=== PATIENT | female | born 1955 | race Hispanic/Latino ===

== ENCOUNTER 2017-11-23 14:38 | Emergency (ER) | payer MEDICAID, OTHER ==
[~2017-11-23 14:38] MED LIST: ASPI-1197 PO; ENAL2.5T PO; METF500T6 PO; NITR0.4T50 SL; SIMV20TA6 PO
[2017-11-23 16:43] LABS: APPEARANCE,URINE CLEAR (CLEAR); BILIRUBIN,URINE NEGATIVE (NEGATIVE); COLOR,URINE YELLOW (YELLOW); GLUCOSE, URINE (UA) NEGATIVE (NEGATIVE); KETONES,URINE NEGATIVE (NEGATIVE); LEUKOCYTE ESTERASE ,URINE TRACE (NEGATIVE); NITRATE,URINE NEGATIVE (NEGATIVE); OCCULT BLOOD,URINE TRACE-INTACT (NEGATIVE); PH,URINE 5.5 (5.0-8.0); PROTEIN,URINE NEGATIVE (NEGATIVE); UROBILINOGEN,URINE 0.2 mg/dL (0.2-1.0)
[2017-11-23 16:44] LABS: BACTERIA,URINE Rare /HPF (None Seen); RBC,URINE 0-1 /HPF (0-1); WBC,URINE 0-1 /HPF (0-1)
== END 2017-11-23 17:07 | disposition home or self-care (01) ==
LOC: EDH 14:38
DX: M54.32 Sciatica, left side (principal); M25.562 Pain in left knee; M25.552 Pain in left hip; E11.9 Type 2 diabetes mellitus without complications; I10 Essential (primary) hypertension; I25.10 Atherosclerotic heart disease of native coronary artery without angina pectoris; Z88.0 Allergy status to penicillin
CPT/HCPCS: 72131; 81001

== ENCOUNTER 2018-03-28 17:58 | Emergency (ER) | payer SELFPAY ==
[2018-03-28 18:24] LABS: BASOPHILS % (AUTO) 0.5 % (0.0-5.0); EOSINOPHILS % (AUTO) 1.8 % (0.0-8.0); HEMATOCRIT 38.2 % (36-48); LYMPHOCYTES % (AUTO) 37.2 % (21.0-51.0); MEAN CORPUSCULAR HEMOGLOBIN 29.6 pg (27.0-33.0); MEAN CORPUSCULAR HGB CONC 34.4 g/dL (32.0-36.0); MONOCYTES % (AUTO) 5.9 % (3.0-13.0); NEUTROPHILS % (AUTO) 54.6 % (40.0-77.0); PLATELET COUNT (AUTO) 363 K/uL (130-400); RED BLOOD CELL COUNT(AUTO) 4.44 MIL/uL (4.00-5.50); RED CELL DISTRIBUTION WIDTH 14.9 % (11.0-15.5); WHITE BLOOD COUNT (AUTO) 10.4 K/uL (4.8-10.8)
[2018-03-28 18:25] LABS: APPEARANCE,URINE Clear (CLEAR); BILIRUBIN,URINE Negative (NEGATIVE); COLOR,URINE Yellow (YELLOW); GLUCOSE, URINE (UA) Negative (NEGATIVE); KETONES,URINE Negative (NEGATIVE); LEUKOCYTE ESTERASE ,URINE Negative (NEGATIVE); NITRATE,URINE Negative (NEGATIVE); OCCULT BLOOD,URINE Negative (NEGATIVE); PROTEIN,URINE Negative (NEGATIVE); UROBILINOGEN,URINE 0.2 mg/dL (0.2-1.0)
[2018-03-28 18:32] LABS: POTASSIUM 4.3 mmol/L (3.5-5.1)
[2018-03-28 18:36] LABS: ALBUMIN 3.6 g/dL (3.5-5.0); BILIRUBIN,TOTAL 0.2 mg/dL (0.2-1.0); TOTAL PROTEIN, SERUM 8.7 g/dL (6.0-8.3)
[2018-03-28] MEDS ORDERED: IOPAMIDOL-370 75 ML VIAL IV ONE (19:00)
[2018-03-28] MEDS ORDERED: SODIUM CHLORIDE 0.9% 1000ML 1,000 ML IV ONE (19:09)
[2018-03-28] MEDS ORDERED: ONDANSETRON HCL 4 MG/2 ML VIAL ONE (19:09)
[2018-03-28 19:10] LABS: CREATINE KINASE, TOTAL 80 U/L (21-232); LIPASE 198 U/L (114-286)
[2018-03-28] MEDS ORDERED: MORPHINE SULFATE 4 MG/1ML SYG ONE (19:10)
== END 2018-03-28 20:25 | disposition home or self-care (01) ==
LOC: EDH 17:58
DX: K42.9 Umbilical hernia without obstruction or gangrene (principal); E11.9 Type 2 diabetes mellitus without complications; I10 Essential (primary) hypertension; I25.10 Atherosclerotic heart disease of native coronary artery without angina pectoris; Z88.0 Allergy status to penicillin
CPT/HCPCS: 36415; 74177; 80053; 81003; 82550; 83690; 84484; 85025; 93005; 96374; 96375; 99285; J2270; J2405; J7030; Q9967

== ENCOUNTER → 2018-08-02 | Outpatient (CLI) | payer OTHER, MEDICARE ==
[~2018-08-02] MED LIST changes: +METF-444 PO; -METF500T6 PO
== END | disposition home or self-care (01) ==
LOC: SHCH 14:46
PROVIDERS: ATTEND Internal Medicine Cardiovascular Disease
DX: R01.1 Cardiac murmur, unspecified (principal)
CPT/HCPCS: 93306

== ENCOUNTER → 2018-08-05 | Outpatient (CLI) | payer OTHER, MEDICARE ==
[~2018-08-05] MED LIST changes: +REGADENOSON 0.4 MG/5 ML PF SYG IVP SCH
== END | disposition home or self-care (01) ==
LOC: SHCH 07:45
PROVIDERS: ATTEND Internal Medicine Cardiovascular Disease
DX: I10 Essential (primary) hypertension (principal); I25.10 Atherosclerotic heart disease of native coronary artery without angina pectoris
CPT/HCPCS: 78452; 93017; 96374; A9500 ×2; J2785

== ENCOUNTER 2019-03-14 18:30 | Emergency (ER) | payer MEDICARE, OTHER ==
[~2019-03-14 18:30] MED LIST changes: -REGADENOSON 0.4 MG/5 ML PF SYG IVP SCH
[2019-03-14 20:25] LABS: BASOPHILS % (AUTO) 0.4 % (0.0-5.0); EOSINOPHILS % (AUTO) 2.2 % (0.0-8.0); HEMATOCRIT 36.2 % (36-48); MEAN CORPUSCULAR HEMOGLOBIN 29.5 pg (27.0-33.0); MEAN CORPUSCULAR HGB CONC 33.6 g/dL (32.0-36.0); MEAN CORPUSCULAR VOLUME 87.6 fL (79-99); MONOCYTES % (AUTO) 6.8 % (3.0-13.0); NEUTROPHILS % (AUTO) 65.6 % (40.0-77.0); PLATELET COUNT (AUTO) 288 K/uL (130-400); RED BLOOD CELL COUNT(AUTO) 4.14 MIL/uL (4.00-5.50); RED CELL DISTRIBUTION WIDTH 14.1 % (11.0-15.5); WHITE BLOOD COUNT (AUTO) 9.4 K/uL (4.8-10.8)
[2019-03-14 20:40] LABS: CARBON DIOXIDE 23 mmol/L (21-32); CHLORIDE 108 mmol/L (101-111); GLOMERULAR FILTR. RATE CALC 59 mL/min (>60); GLUCOSE,RANDOM 112 mg/dL (70-105); POTASSIUM 4.4 mmol/L (3.5-5.1); SODIUM SERUM 140 mmol/L (136-145); UREA NITROGEN, BLOOD 19 mg/dL (7-18)
[2019-03-14 20:44] LABS: ALANINE AMINOTRANSFERASE 21 U/L (12-78); ALBUMIN 3.5 g/dL (3.5-5.0); ASPARTATE AMINOTRANSFERASE 18 U/L (10-37); BILIRUBIN,DIRECT < 0.1 mg/dL (0.0-0.3); BILIRUBIN,TOTAL 0.2 mg/dL (0.2-1.0); TOTAL PROTEIN, SERUM 8.2 g/dL (6.0-8.3)
== END 2019-03-14 21:21 | disposition home or self-care (01) ==
LOC: EDH 18:30
DX: M79.662 Pain in left lower leg (principal); M79.652 Pain in left thigh; M25.562 Pain in left knee; E11.9 Type 2 diabetes mellitus without complications; I10 Essential (primary) hypertension; I25.10 Atherosclerotic heart disease of native coronary artery without angina pectoris; Z88.0 Allergy status to penicillin
CPT/HCPCS: 36415; 80048; 80076; 85025; 93971

== ENCOUNTER 2019-04-07 12:51 | Emergency (ER) | payer OTHER ==
[2019-04-07] MEDS ORDERED: KETOROLAC TROMETHAMINE 30MG/ML ONE (13:57)
== END 2019-04-07 14:43 | disposition home or self-care (01) ==
LOC: EDH 12:51
DX: M23.8X2 Other internal derangements of left knee (principal); I25.10 Atherosclerotic heart disease of native coronary artery without angina pectoris; E11.9 Type 2 diabetes mellitus without complications; I10 Essential (primary) hypertension; Z88.0 Allergy status to penicillin
CPT/HCPCS: 29505; 73562; 96372; 99284; J1885

== ENCOUNTER 2019-07-22 05:30 | Day surgery (SDC) | payer OTHER ==
[2019-07-17 10:11] VITALS: BP 145/75
[2019-07-17 10:15] LABS: BASOPHILS % (AUTO) 0.4 % (0.0-5.0); EOSINOPHILS % (AUTO) 1.5 % (0.0-8.0); HEMATOCRIT 36.4 % (36-48); LYMPHOCYTES % (AUTO) 29.5 % (21.0-51.0); MEAN CORPUSCULAR HEMOGLOBIN 29.4 pg (27.0-33.0); MEAN CORPUSCULAR HGB CONC 33.8 g/dL (32.0-36.0); MEAN CORPUSCULAR VOLUME 86.9 fL (79-99); MONOCYTES % (AUTO) 6.4 % (3.0-13.0); NEUTROPHILS % (AUTO) 62.2 % (40.0-77.0); PLATELET COUNT (AUTO) 303 K/uL (130-400); RED BLOOD CELL COUNT(AUTO) 4.19 MIL/uL (4.00-5.50); RED CELL DISTRIBUTION WIDTH 14.5 % (11.0-15.5)
[2019-07-17 10:18] LABS: APPEARANCE,URINE Clear (CLEAR); BILIRUBIN,URINE Negative (NEGATIVE); COLOR,URINE Yellow (YELLOW); GLUCOSE, URINE (UA) Negative (NEGATIVE); KETONES,URINE Negative (NEGATIVE); LEUKOCYTE ESTERASE ,URINE Small (NEGATIVE); NITRATE,URINE Negative (NEGATIVE); OCCULT BLOOD,URINE Negative (NEGATIVE); PROTEIN,URINE Negative (NEGATIVE); UROBILINOGEN,URINE 0.2 mg/dL (0.2-1.0)
[2019-07-17 10:28] LABS: POTASSIUM 4.8 mmol/L (3.5-5.1)
[2019-07-17 10:30] LABS: BACTERIA,URINE Rare /HPF (None Seen); RBC,URINE 0-1 /HPF (0-1); WBC,URINE 0-1 /HPF (0-1)
[2019-07-17 10:32] LABS: INR 0.94 (0.85-1.15); PARTIAL THROMBOPLASTIN TIME 24.6 SEC (26.3-35.5); PROTHROMBIN TIME 9.9 SEC (9.6-11.6)
[~2019-07-22] VITALS: Ht 147.3 cm; Wt 67.1 kg
[2019-07-22] VITALS (11 sets, daily range): BP systolic 94–171; BP diastolic 41–80
[~2019-07-22 05:30] MED LIST changes: +ALBU8.5H8 IH; +AMLO5TAB9 PO; +BENZ-51 PO; +CETI10TA57 PO; +CYCL10TA7 PO; -ENAL2.5T PO; +ERGO50CA PO; +ISOS30TA6 PO; +LINA5TAB PO; -METF-444 PO; +METO-408 PO; +RANI150T7 PO; +ROSU10TA28 PO; +SERT25TA5 PO; -SIMV20TA6 PO
[2019-07-22] MEDS ORDERED: SODIUM CHLORIDE 0.9% 1000ML 1,000 ML IV ONE (06:17)
[2019-07-22] MEDS ORDERED: SODIUM BICARB 50MEQ 50ML VIAL ONE (07:25)
[2019-07-22] MEDS ORDERED: NITROGLYCERIN 5 MG/ML 10 ML VIAL IV ONE (07:26)
[2019-07-22] MEDS ORDERED: IOHEXOL 350 MG/ML 100ML INFUS..BTL IV ONE (07:26)
[2019-07-22] MEDS ORDERED: IOHEXOL-350 50ML VIAL IV ONE (07:26)
[2019-07-22] MEDS ORDERED: LIDOCAINE HCL 2% 20ML ONE (07:26)
[2019-07-22] MEDS ORDERED: MEPERIDINE-PF 25 MG/ML SYG ONE (07:35)
[2019-07-22] MEDS ORDERED: MIDAZOLAM HCL 1 MG/ML 2ML VIAL ONE (07:35)
[2019-07-22] MEDS ORDERED: SODIUM CHLORIDE 0.9% 1000ML 1,000 ML IV SCH (08:34)
[2019-07-22] MEDS ORDERED: GLUCAGON 1MG KIT 1 MG ML IM PRN (08:45)
[2019-07-22] MEDS ORDERED: DEXTROSE 50%-WATER 50 ML DISP.SYRIN IV PRN (08:45)
[2019-07-22] MEDS ORDERED: PANTOPRAZOLE SODIUM 40 MG TABLET.DR PO SCH (09:15)
[2019-07-22] MEDS ORDERED: ACETAMINOPHEN-CODEINE 300/30MG TAB PO SCH (09:15)
[2019-07-22] MEDS ORDERED: ONDANSETRON HCL 4 MG/2 ML VIAL ONE (11:04)
[2019-07-22] MEDS ORDERED: INSULIN HUMULIN R 100 UNIT/ML 3ML SQ SCH (11:30)
== END 2019-07-22 13:15 | disposition home or self-care (01) ==
LOC: DAH 05:30
PROVIDERS: ATTEND Internal Medicine Cardiovascular Disease
DX: I25.118 Atherosclerotic heart disease of native coronary artery with other forms of angina pectoris (principal); R94.39 Abnormal result of other cardiovascular function study; I12.9 Hypertensive chronic kidney disease with stage 1 through stage 4 chronic kidney disease, or unspecified chronic kidney disease; E11.22 Type 2 diabetes mellitus with diabetic chronic kidney disease; N18.9 Chronic kidney disease, unspecified; E78.00 Pure hypercholesterolemia, unspecified; Z88.0 Allergy status to penicillin; Z79.82 Long term (current) use of aspirin; Z79.899 Other long term (current) drug therapy; E11.9 Type 2 diabetes mellitus without complications; Z90.5 Acquired absence of kidney; Z98.890 Other specified postprocedural states; Z82.49 Family history of ischemic heart disease and other diseases of the circulatory system
CPT/HCPCS: 36415; 71045; 80048; 81001; 82948 ×3; 85025; 85610; 85730; 93005; 93458; A4215; A4216; A4221; A4222; A4223 ×3; A4606; C1760; C1894; J1644; J2175; J2250; J2405; J3490 ×3; J7030; Q9965; Q9967 ×2; 99156; 99157

== ENCOUNTER 2020-01-07 22:12 | Emergency (ER) | payer OTHER ==
[2020-01-07] MEDS ORDERED: DEXAMETHASONE SOD PHOSPHATE 10MG/ML 1ML VIAL ONE (23:18)
[2020-01-07] MEDS ORDERED: KETOROLAC TROMETHAMINE 30MG/ML ONE (23:19)
[2020-01-07] MEDS ORDERED: IPRATROPIUM/ALBUTEROL SULFATE 3 ML SOLUTION IH ONE (23:30)
== END 2020-01-08 00:59 | disposition home or self-care (01) ==
LOC: EDH 22:12
DX: J20.9 Acute bronchitis, unspecified (principal); I25.10 Atherosclerotic heart disease of native coronary artery without angina pectoris; E11.9 Type 2 diabetes mellitus without complications; I10 Essential (primary) hypertension; Z88.0 Allergy status to penicillin
CPT/HCPCS: 71046; 87804 ×2; 94640; 96372 ×2; 99284; J1100; J1885

== ENCOUNTER 2021-03-07 20:27 | Emergency (ER) | payer OTHER, MEDICARE ==
[~2021-03-07 20:27] MED LIST changes: +AMLO-257 PO; -AMLO5TAB9 PO; -BENZ-51 PO; +BENZ-70 PO; -ISOS30TA6 PO; +ISOS30TA92 PO; +SERT-438 PO; -SERT25TA5 PO
[2021-03-07] MEDS ORDERED: ONDANSETRON HCL 4 MG/2 ML VIAL ONE ×2 (21:51→23:48)
[2021-03-07] MEDS ORDERED: PANTOPRAZOLE 40 MG/VIAL ONE (21:52)
[2021-03-07] MEDS ORDERED: FAMOTIDINE/PF 20 MG/2 ML VIAL IV ONE (21:52)
[2021-03-07] MEDS ORDERED: SODIUM CHLORIDE 0.9% 100 ML IV ONE (21:53)
[2021-03-07 22:05] LABS: BASOPHILS % (AUTO) 0.4 % (0.0-5.0); EOSINOPHILS % (AUTO) 3.6 % (0.0-8.0); HEMATOCRIT 38.4 % (36-48); LYMPHOCYTES % (AUTO) 35.2 % (21.0-51.0); MEAN CORPUSCULAR HEMOGLOBIN 28.8 pg (27.0-33.0); MEAN CORPUSCULAR HGB CONC 32.3 g/dL (32.0-36.0); MEAN CORPUSCULAR VOLUME 89.1 fL (79-99); MONOCYTES % (AUTO) 6.9 % (3.0-13.0); NEUTROPHILS % (AUTO) 53.2 % (40.0-77.0); PLATELET COUNT (AUTO) 292 K/uL (130-400); RED BLOOD CELL COUNT(AUTO) 4.31 MIL/uL (4.00-5.50); WHITE BLOOD COUNT (AUTO) 10.7 K/uL (4.8-10.8)
[2021-03-07 22:15] LABS: APPEARANCE,URINE Clear (CLEAR); BILIRUBIN,URINE Negative (NEGATIVE); COLOR,URINE Yellow (YELLOW); GLUCOSE, URINE (UA) Negative (NEGATIVE); KETONES,URINE Negative (NEGATIVE); LEUKOCYTE ESTERASE ,URINE Moderate (NEGATIVE); NITRATE,URINE Negative (NEGATIVE); OCCULT BLOOD,URINE Negative (NEGATIVE); PROTEIN,URINE Negative (NEGATIVE)
[2021-03-07 22:17] LABS: CREATININE 0.9 mg/dL (0.5-1.5); INR 0.94 (0.85-1.15); POTASSIUM 4.4 mmol/L (3.5-5.1); PROTHROMBIN TIME 10.3 SEC (9.6-11.6)
[2021-03-07 22:19] LABS: PARTIAL THROMBOPLASTIN TIME 23.4 SEC (26.3-35.5)
[2021-03-07 22:21] LABS: ALBUMIN 3.4 g/dL (3.5-5.0); BILIRUBIN,TOTAL 0.1 mg/dL (0.2-1.0); TOTAL PROTEIN, SERUM 7.7 g/dL (6.0-8.3)
[2021-03-07 22:42] LABS: RBC,URINE None Seen /HPF (0-1)
[2021-03-07 22:43] LABS: BACTERIA,URINE Few /HPF (None Seen); SQUAMOUS EPITHELIAL CELL,UR Moderate /HPF (0-2)
[2021-03-07] MEDS ORDERED: CEPHALEXIN 500 MG CAPSULE ONE (23:42)
[2021-03-07] MEDS ORDERED: MAG HYDROX/AL HYDROX/SIMETH ES 30 ML SUSP UDCUP ONE (23:42)
[2021-03-07] MEDS ORDERED: LIDOCAINE HCL 2% VISCOUS 15 ML UDCUP ONE (23:42)
== END 2021-03-08 00:19 | disposition home or self-care (01) ==
LOC: EDH 20:27
DX: K29.00 Acute gastritis without bleeding (principal); N39.0 Urinary tract infection, site not specified; E86.0 Dehydration; E11.9 Type 2 diabetes mellitus without complications; I10 Essential (primary) hypertension; I25.10 Atherosclerotic heart disease of native coronary artery without angina pectoris; Z88.0 Allergy status to penicillin; Z90.49 Acquired absence of other specified parts of digestive tract
CPT/HCPCS: 36415; 71045; 76705; 80053; 81001; 83690; 84484; 85025; 85610; 85730; 87088; 93005; 96374; 96375; 96376; 99285; C9113; J2405 ×2; J3490

== ENCOUNTER 2021-03-23 17:15 | Emergency (ER) | payer OTHER, MEDICARE ==
[2021-03-23] MEDS ORDERED: ACETAMINOPHEN-CODEINE 300/30MG TAB ONE (19:44)
[2021-03-23] MEDS ORDERED: KETOROLAC TROMETHAMINE 30MG/ML ONE (19:44)
== END 2021-03-23 20:13 | disposition home or self-care (01) ==
LOC: EDH 17:15
DX: S80.02XA Contusion of left knee, initial encounter (principal); I10 Essential (primary) hypertension; E11.9 Type 2 diabetes mellitus without complications; I25.10 Atherosclerotic heart disease of native coronary artery without angina pectoris; Z88.0 Allergy status to penicillin; W18.39XA Other fall on same level, initial encounter; Y93.89 Activity, other specified; Y92.89 Other specified places as the place of occurrence of the external cause; Y99.8 Other external cause status
CPT/HCPCS: 73562; 96372; 99283; J1885

== ENCOUNTER 2021-07-22 10:12 | Observation (INO) | payer OTHER, MEDICARE ==
[~2021-07-22] VITALS: Ht 177.8 cm; Wt 68.9 kg
[~2021-07-22 10:12] MED LIST changes: +CYCL-309 PO; -CYCL10TA7 PO
[2021-07-22 10:36] LABS: BASOPHILS % (AUTO) 0.4 % (0.0-5.0); EOSINOPHILS % (AUTO) 1.6 % (0.0-8.0); HEMATOCRIT 38.2 % (36-48); LYMPHOCYTES % (AUTO) 34.4 % (21.0-51.0); MEAN CORPUSCULAR HEMOGLOBIN 28.5 pg (27.0-33.0); MEAN CORPUSCULAR VOLUME 86.4 fL (79-99); MONOCYTES % (AUTO) 5.3 % (3.0-13.0); NEUTROPHILS % (AUTO) 57.6 % (40.0-77.0); PLATELET COUNT (AUTO) 333 K/uL (130-400); RED BLOOD CELL COUNT(AUTO) 4.42 MIL/uL (4.00-5.50); RED CELL DISTRIBUTION WIDTH 14.2 % (11.0-15.5); WHITE BLOOD COUNT (AUTO) 8.1 K/uL (4.8-10.8)
[2021-07-22 10:43] LABS: POTASSIUM 3.8 mmol/L (3.5-5.1)
[2021-07-22 10:45] LABS: INR 0.95 (0.85-1.15); PROTHROMBIN TIME 10.4 SEC (9.6-11.6)
[2021-07-22 10:46] LABS: PARTIAL THROMBOPLASTIN TIME 23.4 SEC (26.3-35.5)
[2021-07-22 10:48] LABS: ALBUMIN 3.3 g/dL (3.5-5.0); BILIRUBIN,TOTAL 0.2 mg/dL (0.2-1.0); TOTAL PROTEIN, SERUM 7.6 g/dL (6.0-8.3)
[2021-07-22 10:55] LABS: B-TYPE NATRIURETIC PEPTIDE 8 pg/mL (0-100)
[2021-07-22 11:58] VITALS: BP 163/71
[2021-07-22] MEDS ORDERED: ASPIRIN 325MG TAB PO SCH (12:00)
[2021-07-22] MEDS ORDERED: NITROGLYCERIN 1GM OINT 1 INCH/1GM TD SCH (12:00)
[2021-07-22] MEDS ORDERED: ERGO50CA PO (12:27)
[2021-07-22] MEDS ORDERED: DICY20TA3 PO (12:27)
[2021-07-22] MEDS ORDERED: IBUP-2070 PO (12:27)
[2021-07-22] MEDS ORDERED: ATOR10TA69 PO (12:27)
[2021-07-22] MEDS ORDERED: CYCL-309 PO (12:27)
[2021-07-22] MEDS ORDERED: NITROGLYCERIN 0.4 MG SL TAB SL ONE (13:57)
[2021-07-22 14:00] VITALS: BP 158/81
[2021-07-22] MEDS ORDERED: ENOXAPARIN SODIUM 80 MG/0.8 ML SQ SCH (14:00)
[2021-07-22] MEDS ORDERED: MORPHINE 2 MG SYG ONE (14:04)
[2021-07-22] MEDS ORDERED: ENOXAPARIN SODIUM 80 MG/0.8 ML SQ ONE (14:04)
[2021-07-22] MEDS ORDERED: MORPHINE 2 MG SYG IVP PRN (14:30)
[2021-07-22] MEDS ORDERED: LACTULOSE 20 GM/30 ML UDCUP PO PRN (14:30)
[2021-07-22] MEDS ORDERED: MAG/ALUM/SIMETH 30 ML UDCUP PO SCH (14:30)
[2021-07-22] MEDS ORDERED: NITROGLYCERIN 0.4 MG SL TAB SL PRN (14:30)
[2021-07-22] MEDS: NITROGLYCERIN 1GM OINT 1 INCH/1GM TD SCH ×2 (14:30→23:02)
[2021-07-22] MEDS ORDERED: PANTOPRAZOLE 40 MG/VIAL IVP SCH (14:30)
[2021-07-22] MEDS ORDERED: MORPHINE 2 MG SYG IVP SCH (14:30)
[2021-07-22] MEDS ORDERED: ACETAMINOPHEN 650 MG SUPPOSITORY RC PRN ×2 (14:30)
[2021-07-22] MEDS ORDERED: CLONIDINE HCL 0.1 MG TABLET PO PRN (14:30)
[2021-07-22] MEDS ORDERED: HYDRALAZINE 20MG/ML VIAL IV PRN (14:30)
[2021-07-22 14:45] LABS: AMYLASE 69 U/L (25-115); LIPASE 174 U/L (114-286)
[2021-07-22 15:27] LABS: APPEARANCE,URINE Clear (CLEAR); BILIRUBIN,URINE Negative (NEGATIVE); COLOR,URINE Yellow (YELLOW); GLUCOSE, URINE (UA) 250 mg/dL (NEGATIVE); KETONES,URINE Negative (NEGATIVE); LEUKOCYTE ESTERASE ,URINE Large (NEGATIVE); NITRATE,URINE Negative (NEGATIVE); OCCULT BLOOD,URINE Negative (NEGATIVE); PH,URINE 5.5 (5.0-8.0); PROTEIN,URINE Negative (NEGATIVE); UROBILINOGEN,URINE 0.2 mg/dL (0.2-1.0)
[2021-07-22 15:40] LABS: BACTERIA,URINE Moderate /HPF (None Seen); RBC,URINE 0-1 /HPF (0-1); WBC,URINE 26-50 /HPF (0-1)
[2021-07-22] MEDS ORDERED: POTASSIUM CHLORIDE 20MEQ/100ML 100 ML IV PRN (18:00)
[2021-07-22] MEDS ORDERED: KCL 20 MEQ ERTAB PO PRN (18:00)
[2021-07-22] MEDS ORDERED: DEXTROSE 50%-WATER 50 ML DISP.SYRIN IV PRN (18:00)
[2021-07-22] MEDS ORDERED: POTASSIUM CHLORIDE 10% ELIXIR 20 MEQ/15 ML UDCUP PO PRN (18:00)
[2021-07-22] MEDS ORDERED: GLUCAGON 1MG KIT 1 MG ML IM PRN (18:00)
[2021-07-22] MEDS ORDERED: LEVOFLOXACIN 500 MG/D5W 100 ML 100 ML IV SCH (18:00)
[2021-07-22] MEDS ORDERED: LIDOCAINE HCL-MPF 1% 2ML VIAL IV PRN (18:00)
[2021-07-22] MEDS: ONDANSETRON 4MG INJ IVP PRN (18:07)
[2021-07-22 18:23] VITALS: BP 151/72
[2021-07-22] MEDS ORDERED: ACETAMINOPHEN 325 MG TAB ONE (18:51)
[2021-07-22 19:30] VITALS: BP 151/72
[2021-07-22 21:00] VITALS: BP 134/76
[2021-07-22] MEDS: INSULIN HUMULIN R 100 UNIT/ML 3ML SQ SCH (21:00)
[2021-07-22 23:00] VITALS: BP 125/55
[2021-07-22] MEDS: ENOXAPARIN SODIUM 80 MG/0.8 ML SQ SCH (23:00)
[2021-07-23] VITALS (7 sets, daily range): BP systolic 118–146; BP diastolic 55–83
[2021-07-23 03:50] LABS: BASOPHILS % (AUTO) 0.5 % (0.0-5.0); EOSINOPHILS % (AUTO) 0.7 % (0.0-8.0); HEMATOCRIT 35.5 % (36-48); LYMPHOCYTES % (AUTO) 32.3 % (21.0-51.0); MEAN CORPUSCULAR HEMOGLOBIN 28.5 pg (27.0-33.0); MEAN CORPUSCULAR VOLUME 86.6 fL (79-99); MONOCYTES % (AUTO) 5.5 % (3.0-13.0); PLATELET COUNT (AUTO) 291 K/uL (130-400); RED CELL DISTRIBUTION WIDTH 14.2 % (11.0-15.5); WHITE BLOOD COUNT (AUTO) 8.1 K/uL (4.8-10.8)
[2021-07-23 04:13] LABS: B-TYPE NATRIURETIC PEPTIDE 14 pg/mL (0-100)
[2021-07-23 04:15] LABS: CREATININE 0.9 mg/dL (0.5-1.5); MAGNESIUM 2.3 mg/dL (1.80-2.40); PHOSPHORUS 3.2 mg/dL (2.5-4.9); POTASSIUM 4.2 mmol/L (3.5-5.1); THYROID STIMULATING HORMONE 0.59 uIU/mL (0.36-3.74)
[2021-07-23] MEDS: INSULIN HUMULIN R 100 UNIT/ML 3ML SQ SCH ×4 (06:46→22:20)
[2021-07-23] MEDS: NITROGLYCERIN 1GM OINT 1 INCH/1GM TD SCH ×3 (07:03→22:04)
[2021-07-23] MEDS ORDERED: PANTOPRAZOLE 40 MG/VIAL IVP SCH (09:00)
[2021-07-23] MEDS: ASPIRIN 81MG CHEW TAB PO SCH (09:22)
[2021-07-23] MEDS: ONDANSETRON 4MG INJ IVP PRN (09:22)
[2021-07-23] MEDS: PANTOPRAZOLE 40 MG/VIAL IVP SCH ×2 (09:23→21:15)
[2021-07-23] MEDS: ENOXAPARIN SODIUM 80 MG/0.8 ML SQ SCH (09:23)
[2021-07-23] MEDS ORDERED: NITROGLYCERIN 0.4 MG SL TAB SL SCH (11:30)
[2021-07-23] MEDS ORDERED: AMITRIPTYLINE 25 MG TABLET PO SCH (11:30)
[2021-07-23] MEDS ORDERED: SOLU-MEDROL 40MG VIAL IVP SCH (12:00)
[2021-07-23] MEDS: METOCLOPRAMIDE 10 MG/2 ML VIAL IVP SCH ×3 (12:39→21:15)
[2021-07-23] MEDS ORDERED: LEVOFLOXACIN 250 MG/D5W 50ML 50 ML IVPB SCH (18:00)
[2021-07-23] MEDS ORDERED: AMLODIPINE 5 MG TAB PO SCH (21:00)
[2021-07-23] MEDS ORDERED: METOPROLOL SUCCINATE 50 MG TAB.SR.24H PO SCH (21:00)
[2021-07-23] MEDS ORDERED: ATORVASTATIN 10 MG TABLET PO SCH (21:00)
[2021-07-23] MEDS ORDERED: ROSU10TA28 PO (21:13)
[2021-07-24] VITALS: BP 108/49
[2021-07-24 04:00] VITALS: BP 101/53
[2021-07-24 05:08] LABS: HEMATOCRIT 35.6 % (36-48); MEAN CORPUSCULAR HEMOGLOBIN 28.2 pg (27.0-33.0); MEAN CORPUSCULAR HGB CONC 32.6 g/dL (32.0-36.0); MEAN CORPUSCULAR VOLUME 86.4 fL (79-99); RED BLOOD CELL COUNT(AUTO) 4.12 MIL/uL (4.00-5.50); RED CELL DISTRIBUTION WIDTH 14.1 % (11.0-15.5); WHITE BLOOD COUNT (AUTO) 11.8 K/uL (4.8-10.8)
[2021-07-24 05:28] LABS: BILIRUBIN,TOTAL 0.2 mg/dL (0.2-1.0); POTASSIUM 4.3 mmol/L (3.5-5.1); TOTAL PROTEIN, SERUM 7.2 g/dL (6.0-8.3)
[2021-07-24] MEDS: NITROGLYCERIN 1GM OINT 1 INCH/1GM TD SCH ×2 (06:04→14:30)
[2021-07-24] MEDS: INSULIN HUMULIN R 100 UNIT/ML 3ML SQ SCH ×3 (06:05→16:30)
[2021-07-24] MEDS: METOCLOPRAMIDE 10 MG/2 ML VIAL IVP SCH (06:36)
[2021-07-24 08:00] VITALS: BP 128/69
[2021-07-24] MEDS ORDERED: METO5TAB87 PO (08:11)
[2021-07-24] MEDS ORDERED: AMIT50TA3 PO (08:11)
[2021-07-24] MEDS ORDERED: MACR100 PO (08:24)
[2021-07-24] MEDS ORDERED: NITROFURANTOIN MONOHYD/M-CRYST 100 MG CAPSULE PO SCH (09:00)
[2021-07-24] MEDS ORDERED: ERGOCALCIFEROL 25 MCG PO SCH (09:00)
[2021-07-24] MEDS ORDERED: ENOXAPARIN SODIUM 80 MG/0.8 ML SQ SCH (09:00)
[2021-07-24] MEDS ORDERED: ISOSORBIDE MONO 30MG SR TAB PO SCH (09:00)
[2021-07-24] MEDS ORDERED: ASPIRIN 81MG CHEW TAB PO SCH (09:00)
[2021-07-24] MEDS: ASPIRIN 81MG CHEW TAB PO SCH (10:32)
[2021-07-24] MEDS: PANTOPRAZOLE 40 MG/VIAL IVP SCH (10:32)
[2021-07-24] MEDS ORDERED: METOCLOPRAMIDE 5 MG TABLET PO SCH (11:30)
[2021-07-24 12:00] VITALS: BP 119/59
[2021-07-24 16:00] VITALS: BP 102/52
[2021-07-24] MEDS ORDERED: AMITRIPTYLINE 25 MG TABLET PO SCH (21:00)
== END 2021-07-24 17:05 | disposition home or self-care (01) ==
LOC: EDH 10:12 → EDHIP 13:59 → 4CH 07-23 00:45
PROVIDERS: ADMIT Internal Medicine; ATTEND Internal Medicine
DX: R07.89 Other chest pain (principal); Z20.822 Contact with and (suspected) exposure to COVID-19; I10 Essential (primary) hypertension; E03.9 Hypothyroidism, unspecified; I25.110 Atherosclerotic heart disease of native coronary artery with unstable angina pectoris; M19.90 Unspecified osteoarthritis, unspecified site; E10.43 Type 1 diabetes mellitus with diabetic autonomic (poly)neuropathy; E10.65 Type 1 diabetes mellitus with hyperglycemia; F32.9 Major depressive disorder, single episode, unspecified; K31.84 Gastroparesis; E66.9 Obesity, unspecified; E78.00 Pure hypercholesterolemia, unspecified; E78.5 Hyperlipidemia, unspecified; N39.0 Urinary tract infection, site not specified; R10.13 Epigastric pain; Z95.1 Presence of aortocoronary bypass graft; Z79.899 Other long term (current) drug therapy; Z98.890 Other specified postprocedural states; Z90.49 Acquired absence of other specified parts of digestive tract; Z98.891 History of uterine scar from previous surgery; Z79.82 Long term (current) use of aspirin; Z79.4 Long term (current) use of insulin; Z90.5 Acquired absence of kidney; Z95.5 Presence of coronary angioplasty implant and graft; Z68.21 Body mass index [BMI] 21.0-21.9, adult
CPT/HCPCS: 36415 ×3; 71045; 74150; 80048; 80053 ×2; 81001; 82150; 82550 ×3; 82948 ×8; 83036; 83690; 83735; 83874 ×3; 83880 ×2; 84100; 84443; 84484 ×4; 85025 ×2; 85027; 85378; 85610; 85730; 87088; 87635; 93005; 96365; 96366; 96372 ×3; 96375 ×2; 96376 ×2; 97039; 97116; 97161; 99285; C9113 ×4; G0378 ×49; J1650 ×4; J1815 ×2; J1956 ×2; J2405 ×2; J2765 ×3; J2920

== ENCOUNTER 2022-10-31 17:26 | Emergency (ER) | payer OTHER, MEDICARE ==
[~2022-10-31] VITALS: Ht 162.6 cm; Wt 95.3 kg
[~2022-10-31 17:26] MED LIST changes: +ACET-66 PO; -ALBU8.5H8 IH; +AMIT50TA3 PO; -BENZ-70 PO; -CETI10TA57 PO; -CYCL-309 PO; +MACR100 PO; +METO5TAB87 PO; +NITR100C PO; -RANI150T7 PO; -SERT-438 PO
[2022-10-31] MEDS ORDERED: SOLU-MEDROL 125MG VIAL IM ONE (20:00)
[2022-10-31] MEDS ORDERED: METH4TAB3 PO (20:01)
[2022-10-31 20:21] VITALS: BP 140/56
== END 2022-10-31 20:48 | disposition home or self-care (01) ==
LOC: EDH 17:26
DX: S80.01XA Contusion of right knee, initial encounter (principal); E11.9 Type 2 diabetes mellitus without complications; I10 Essential (primary) hypertension; E78.00 Pure hypercholesterolemia, unspecified; Z98.890 Other specified postprocedural states; Z79.899 Other long term (current) drug therapy; Z79.82 Long term (current) use of aspirin; V29.888A Rider (driver) (passenger) of other motorcycle injured in other specified transport accidents, initial encounter; Y93.55 Activity, bike riding; Y92.488 Other paved roadways as the place of occurrence of the external cause; Y99.8 Other external cause status
CPT/HCPCS: 99285; 73562; 96372; 29505; J2930

== ENCOUNTER → 2023-03-07 | Outpatient (CLI) | payer OTHER, MEDICARE ==
[~2023-03-07] MED LIST changes: +METH4TAB3 PO
[2023-03-07 16:26] LABS: BASOPHILS % (AUTO) 0.8 % (0.0-5.0); EOSINOPHILS % (AUTO) 3.4 % (0.0-8.0); HEMATOCRIT 39.1 % (36-48); LYMPHOCYTES % (AUTO) 38.3 % (21.0-51.0); MEAN CORPUSCULAR HGB CONC 31.5 g/dL (32.0-36.0); MEAN CORPUSCULAR VOLUME 89.1 fL (79-99); PLATELET COUNT (AUTO) 310 K/uL (130-400); RED BLOOD CELL COUNT(AUTO) 4.39 MIL/uL (4.00-5.50); RED CELL DISTRIBUTION WIDTH 14.6 % (11.0-15.5); WHITE BLOOD COUNT (AUTO) 7.7 K/uL (4.8-10.8)
[2023-03-07 16:50] LABS: ALBUMIN 3.7 g/dL (3.5-5.0); MAGNESIUM 2.3 mg/dL (1.80-2.40); POTASSIUM 4.6 mmol/L (3.5-5.1); TOTAL PROTEIN, SERUM 7.8 g/dL (6.0-8.3)
== END | disposition home or self-care (01) ==
LOC: LAB 15:08
PROVIDERS: ATTEND Internal Medicine Cardiovascular Disease
DX: R07.9 Chest pain, unspecified (principal)
CPT/HCPCS: 36415; 80053; 83735; 83880; 85025

== ENCOUNTER 2023-07-06 17:32 | Emergency (ER) | payer OTHER, MEDICARE ==
[~2023-07-06] VITALS: Ht 134.6 cm; Wt 70.3 kg
[2023-07-06 18:34] LABS: SARS-CoV-2, RNA, NAAT NEGATIVE SARS CoV-2 (NEGATIVE)
[2023-07-06 18:40] LABS: INFLUENZA TYPE A Negative For Type A (NEGATIVE); INFLUENZA TYPE B Negative For Type B (NEGATIVE)
[2023-07-06 19:38] VITALS: BP 177/89; PULSE 81; RESP 18; O2SAT 98
[2023-07-06 19:53] LABS: BASOPHILS # (AUTO) 0.05 K/uL (0.00-0.20); BASOPHILS % (AUTO) 0.5 % (0.0-5.0); EOSINOPHILS # (AUTO) 0.34 K/uL (0.00-0.70); EOSINOPHILS % (AUTO) 3.1 % (0.0-8.0); HEMATOCRIT 37.7 % (36-48); IMMATURE GRANULOCYTE ABSOLUTE 0.07 K/uL (0-1); LYMPHOCYTES # (AUTO) 3.6 K/uL (1.0-4.8); LYMPHOCYTES % (AUTO) 32.6 % (21.0-51.0); MEAN CORPUSCULAR HEMOGLOBIN 27.6 pg (27.0-33.0); MEAN CORPUSCULAR HGB CONC 31.8 g/dL (32.0-36.0); MEAN CORPUSCULAR VOLUME 86.7 fL (79-99); MONOCYTES # (AUTO) 0.7 K/uL (0.1-1.0); MONOCYTES % (AUTO) 6.4 % (3.0-13.0); NEUTROPHILS # (AUTO) 6.2 K/uL (1.8-7.7); NEUTROPHILS % (AUTO) 56.8 % (40.0-77.0); PLATELET COUNT (AUTO) 283 K/uL (130-400); RED BLOOD CELL COUNT(AUTO) 4.35 MIL/uL (4.00-5.50); RED CELL DISTRIBUTION WIDTH 14.4 % (11.0-15.5)
[2023-07-06 19:59] LABS: APPEARANCE,URINE CLEAR (CLEAR); BILIRUBIN,URINE NEGATIVE (NEGATIVE); COLOR,URINE COLORLESS (YELLOW); GLUCOSE, URINE (UA) NEGATIVE (NEGATIVE); KETONES,URINE NEGATIVE (NEGATIVE); LEUKOCYTE ESTERASE ,URINE 75 Leu/uL (NEGATIVE); NITRATE,URINE NEGATIVE (NEGATIVE); OCCULT BLOOD,URINE NEGATIVE (NEGATIVE); PROTEIN,URINE NEGATIVE (NEGATIVE); UROBILINOGEN,URINE 0.2 mg/dL (0.2-1.0)
[2023-07-06 20:01] LABS: ADD UA MICROSCOPIC YES
[2023-07-06 20:03] LABS: BACTERIA,URINE RARE /HPF (None Seen); MUCUS,URINE RARE LPF (None Seen); RBC,URINE 0-1 /HPF (0-1); SQUAMOUS EPITHELIAL CELL,UR FEW /HPF (0-2)
[2023-07-06 20:03] LABS: CREATININE 0.9 mg/dL (0.5-1.5); POTASSIUM 4.5 mmol/L (3.5-5.1)
[2023-07-06 20:15] LABS: ALBUMIN 3.5 g/dL (3.5-5.0); BILIRUBIN,TOTAL 0.2 mg/dL (0.2-1.0); TOTAL PROTEIN, SERUM 7.8 g/dL (6.0-8.3)
[2023-07-06] MEDS ORDERED: AZIT250T9 PO (20:18)
[2023-07-06] MEDS ORDERED: FLUT16H NASAL (20:18)
[2023-07-06] MEDS ORDERED: BENZ200C53 PO (20:18)
[2023-07-06 20:20] LABS: B-TYPE NATRIURETIC PEPTIDE 15 pg/mL (0-100)
[2023-07-06] MEDS ORDERED: BENZONATATE 100 MG CAPSULE PO ONE ×2 (20:50→21:00)
[2023-07-06] MEDS ORDERED: AZITHROMYCIN 250 MG TABLET PO ONE ×2 (20:50→21:00)
== END 2023-07-06 21:06 | disposition home or self-care (01) ==
LOC: EDH 17:32
DX: J06.9 Acute upper respiratory infection, unspecified (principal); I10 Essential (primary) hypertension; E11.9 Type 2 diabetes mellitus without complications; E78.00 Pure hypercholesterolemia, unspecified; Z20.822 Contact with and (suspected) exposure to COVID-19; Z79.82 Long term (current) use of aspirin; Z79.899 Other long term (current) drug therapy; Z98.890 Other specified postprocedural states
CPT/HCPCS: 99285; 71045; 87635; 84484; 80053; 83880; 85025; 87088; 87804 ×2; 81001; 36415; 93005; C9803

== ENCOUNTER → 2024-01-01 | Outpatient (CLI) | payer OTHER, MEDICARE ==
[~2024-01-01] MED LIST changes: +AZIT250T9 PO; +BENZ200C53 PO; +FLUT16H NASAL; +IOHEXOL 350 MG/ML 100ML INFUS..BTL IV ONE; +METOPROLOL TARTRATE 1 MG/ML 5ML VIAL IV ONE
[2024-01-01 10:33] LABS: ALBUMIN 3.5 g/dL (3.5-5.0); BILIRUBIN,TOTAL 0.3 mg/dL (0.2-1.0); MAGNESIUM 2.2 mg/dL (1.80-2.40); POTASSIUM 4.1 mmol/L (3.5-5.1); TOTAL PROTEIN, SERUM 7.4 g/dL (6.0-8.3)
== END | disposition home or self-care (01) ==
LOC: RAH 09:07
PROVIDERS: ATTEND Internal Medicine Cardiovascular Disease
DX: R07.9 Chest pain, unspecified (principal)
CPT/HCPCS: 75574; 83735; 80053; 83880; 36415; J3490 ×2; Q9967 ×2

== ENCOUNTER 2024-02-01 14:30 | Emergency (ER) | payer OTHER, MEDICARE ==
[~2024-02-01] VITALS: Ht 134.6 cm; Wt 66.2 kg
[~2024-02-01 14:30] MED LIST changes: -IOHEXOL 350 MG/ML 100ML INFUS..BTL IV ONE; -METOPROLOL TARTRATE 1 MG/ML 5ML VIAL IV ONE
[2024-02-01 16:01] LABS: BASOPHILS # (AUTO) 0.05 K/uL (0.00-0.20); BASOPHILS % (AUTO) 0.5 % (0.0-5.0); EOSINOPHILS # (AUTO) 0.29 K/uL (0.00-0.70); EOSINOPHILS % (AUTO) 2.7 % (0.0-8.0); IMMATURE GRANULOCYTE ABSOLUTE 0.08 K/uL (0-1); LYMPHOCYTES # (AUTO) 3.3 K/uL (1.0-4.8); LYMPHOCYTES % (AUTO) 30.9 % (21.0-51.0); MEAN CORPUSCULAR HEMOGLOBIN 28.9 pg (27.0-33.0); MEAN CORPUSCULAR HGB CONC 32.9 g/dL (32.0-36.0); MEAN CORPUSCULAR VOLUME 87.8 fL (79-99); MONOCYTES # (AUTO) 0.7 K/uL (0.1-1.0); MONOCYTES % (AUTO) 6.9 % (3.0-13.0); NEUTROPHILS # (AUTO) 6.2 K/uL (1.8-7.7); NEUTROPHILS % (AUTO) 58.2 % (40.0-77.0); PLATELET COUNT (AUTO) 338 K/uL (130-400); RED BLOOD CELL COUNT(AUTO) 4.33 MIL/uL (4.00-5.50); RED CELL DISTRIBUTION WIDTH 14.4 % (11.0-15.5); WHITE BLOOD COUNT (AUTO) 10.6 K/uL (4.8-10.8)
[2024-02-01 16:24] LABS: ALBUMIN 3.4 g/dL (3.5-5.0); BILIRUBIN,TOTAL 0.2 mg/dL (0.2-1.0)
[2024-02-01] MEDS ORDERED: MUPI22O TP (19:06)
[2024-02-01] MEDS: ACETAMINOPHEN 500 MG TABLET PO ONE (20:00)
[2024-02-01 20:20] VITALS: BP 155/86; PULSE 75; RESP 16; O2SAT 97
== END 2024-02-01 20:34 | disposition home or self-care (01) ==
LOC: EDH 14:30
DX: S80.02XA Contusion of left knee, initial encounter (principal); S50.11XA Contusion of right forearm, initial encounter; I10 Essential (primary) hypertension; E11.9 Type 2 diabetes mellitus without complications; E78.00 Pure hypercholesterolemia, unspecified; Z79.84 Long term (current) use of oral hypoglycemic drugs; Z79.899 Other long term (current) drug therapy; Z88.0 Allergy status to penicillin; Z98.890 Other specified postprocedural states; W18.39XA Other fall on same level, initial encounter; Y93.89 Activity, other specified; Y92.89 Other specified places as the place of occurrence of the external cause; Y99.8 Other external cause status
CPT/HCPCS: 36415; 73090; 73562; 80053; 84484; 85025

== ENCOUNTER → 2024-03-05 | Outpatient (CLI) | payer OTHER, MEDICARE ==
[~2024-03-05] MED LIST changes: +MUPI22O TP
== END | disposition home or self-care (01) ==
LOC: SHCH 08:20
PROVIDERS: ATTEND Internal Medicine Cardiovascular Disease
DX: E11.9 Type 2 diabetes mellitus without complications (principal)
CPT/HCPCS: 93975

== ENCOUNTER 2024-05-01 22:17 | Emergency (ER) | payer OTHER, MEDICARE ==
[~2024-05-01 22:17] MED LIST changes: -ROSU10TA28 PO; +ROSU10TA72 PO
[2024-05-01 22:45] LABS: BASOPHILS # (AUTO) 0.05 K/uL (0.00-0.20); BASOPHILS % (AUTO) 0.4 % (0.0-5.0); EOSINOPHILS # (AUTO) 0.35 K/uL (0.00-0.70); HEMATOCRIT 38.3 % (36-48); IMMATURE GRANULOCYTE ABSOLUTE 0.09 K/uL (0-1); LYMPHOCYTES # (AUTO) 5.5 K/uL (1.0-4.8); LYMPHOCYTES % (AUTO) 46.6 % (21.0-51.0); MEAN CORPUSCULAR HGB CONC 32.9 g/dL (32.0-36.0); MONOCYTES # (AUTO) 0.7 K/uL (0.1-1.0); MONOCYTES % (AUTO) 5.6 % (3.0-13.0); NEUTROPHILS # (AUTO) 5.1 K/uL (1.8-7.7); NEUTROPHILS % (AUTO) 43.6 % (40.0-77.0); PLATELET COUNT (AUTO) 280 K/uL (130-400); RED BLOOD CELL COUNT(AUTO) 4.35 MIL/uL (4.00-5.50); RED CELL DISTRIBUTION WIDTH 13.9 % (11.0-15.5); WHITE BLOOD COUNT (AUTO) 11.7 K/uL (4.8-10.8)
[2024-05-01 23:06] LABS: CREATININE 0.9 mg/dL (0.5-1.0); POTASSIUM 4.1 mmol/L (3.5-5.1)
[2024-05-01 23:43] VITALS: BP 127/50; PULSE 71; RESP 18; O2SAT 97
== END 2024-05-02 00:04 | disposition home or self-care (01) ==
LOC: EDH 22:17
DX: F41.9 Anxiety disorder, unspecified (principal); R07.89 Other chest pain; R42 Dizziness and giddiness; E11.9 Type 2 diabetes mellitus without complications; E78.00 Pure hypercholesterolemia, unspecified; I10 Essential (primary) hypertension; Z90.5 Acquired absence of kidney; Z88.0 Allergy status to penicillin; Z79.84 Long term (current) use of oral hypoglycemic drugs; Z82.49 Family history of ischemic heart disease and other diseases of the circulatory system
CPT/HCPCS: 36415; 71045; 80048; 84484; 85025; 93005

== ENCOUNTER 2025-03-14 17:59 | Emergency (ER) | payer OTHER, MEDICARE ==
[~2025-03-14] VITALS: Ht 152.4 cm; Wt 71.2 kg
--- NOTE | 2025-03-14 18:07 | ERN ---
General Stated Complaint: BRONCHITIS, ASTHMA FOR WEEK Time Seen by MD: 18:03 History of Present Illness Initial Comments This is a 69-year-old female who presented to the emergency room with complaints of cough and congestion for the past 1 week. She has a known history of asthma and she feels her symptoms flared up associated with chest discomfort she denied any high fevers but does have a chill. She is coughing up scant amounts of sputum. No hemoptysis no recent travel or new pets at home. Temperature 99.3 pulse 94 respirations 22 blood pressure 146/64 with a pulse oximetry of 95% on room air Her chronic medical problems include diabetes mellitus, hypercholesterolemia, hypertension and single kidney Allergies: Coded Allergies: Penicillins (Unverified Allergy, Unknown, 04/07/19) Home Meds Active Scripts Azithromycin (Azithromycin) 250 Mg Tablet, 1 TAB PO AD for 5 Days, #6 TAB 0 Refills 2 the first day followed by 1 for days 2-5 Prov:RHODA LANDEROS MD 03/14/25 Prednisone (Prednisone) 20 Mg Tablet, 1 TAB PO AD for 6 Days, #14 TAB 0 Refills TAKE 1 TAB BY MOUTH THREE TIMES PER DAY X3 DAYS, THEN TAKE 1 TAB BY MOUTH TWICE A DAY X2 DAYS, THEN TAKE 1 TAB BY MOUTH ONCE A DAY X1 DAY. Prov:RHODA LANDEROS MD 03/14/25 Mupirocin (Bactroban 2% Oint) 2 % Oint, 1 APPL TP TID for 5 Days, #15 APPL Prov:ZORAN MURRAY NP 02/01/24 Azithromycin (Azithromycin) 250 Mg Tablet, 250 MG PO DAILY for 5 Days, #6 TAB Take 2 now then 1 daily until complete. Prov:CLARA ELDER 07/06/23 Fluticasone Propionate (Flonase Nasal [place]) 50 Mcg/[place], 50 MCG NASAL DAILY PRN for NASAL CONGESTION for 10 Days, #1 SPRAY Prov:CLARA ELDER 07/06/23 Benzonatate (Benzonatate) 200 Mg Capsule, 200 MG PO TID PRN for COUGH for 14 Days, #42 CAP Prov:CLARA ELDER 07/06/23 Methylprednisolone (Medrol) 4 Mg Tab.ds.pk, 4 MG PO AD for 6 Days, #1 PACK Prov:ADIA DELGADO MD 10/31/22 Nitrofurantoin Macrocrystal (Nitrofurantoin) 100 Mg Capsule, 100 MG PO BID, #14 CAP Prov:CHELY MATOS STAFFING DIRECTOR 05/03/22 Acetaminophen (Tylenol) 500 Mg Tab, 500 MG PO Q4PRN, #30 TAB Prov:SHAWNAFLY-ENEDELIA STAFFING DIRECTOR 05/03/22 Nitrofurantoin/Nitrofuran Mac (Macrobid) 100 Mg Cap, 100 MG PO BID for 7 Days, #14 CAP Prov:CANDIS GROVER CREEL SELECTOR 07/24/21 Amitriptyline HCl (Amitriptyline HCl) 50 Mg Tablet, 50 MG PO DAILY for 30 Days, #30 TAB Prov:CANDIS GROVER NP 07/24/21 Metoclopramide HCl (Reglan) 5 Mg Tablet, 5 MG PO TIDAC for for n/v abd pain(gastroparesis for 30 Days, #90 TAB Prov:CANDIS GROVER CREEL SELECTOR 07/24/21 Reported Medications Rosuvastatin Calcium (Rosuvastatin Calcium) 10 Mg Tablet, 10 MG PO HS, TAB 07/23/21 Ergocalciferol (Vitamin D2) (Vitamin D2) 50 Mcg Capsule, 25 MCG PO 2xweek, CAP 07/22/21 Linagliptin (Tradjenta) 5 Mg Tablet, 5 MG PO DAILY, TAB 07/17/19 Amlodipine Besylate (Amlodipine Besylate) 5 Mg Tablet, 5 MG PO HS, TAB 07/17/19 Metoprolol Succinate (Metoprolol Succinate) 25 Mg Tab.er.24h, 25 MG PO HS, TAB 07/17/19 Isosorbide Mononitrate (Isosorbide Mononitrate ER) 30 Mg Tab.er.24h, 30 MG PO DAILY, TAB 07/17/19 Aspirin (Aspirin) 81 Mg Tab.chew, 81 MG PO daily prn, TAB.CHEW 05/30/16 Nitroglycerin (Nitroglycerin) 0.4 Mg Tab.subl, 0.4 MG SL prn for chest pain, TAB.SL 10/03/14 Past Medical History Past Medical History: Diabetes-Type II, High Cholesterol, Hypertension Past Surgical History: Other Surgical History Other: RT KIDNEY REMOVED Family History Family History: HTN Social History Social History: Negative, Lives with family Female( History) History: Not Applicable Physical Exam Physical Exam Dictation General: awake, alert, NAD Head/Face: Normocephalic, atraumatic Eyes: PERRL, EOMI, vision at baseline ENT: oral cavity clear, TMs clear, no signs of infection Neck: Trachea midline, supple, no nuchal rigidity Cardiovascular: RRR, normal S1/S2, No MRGs, no JVD Respiratory: Bilateral coarse rhonchi with occasional end expiratory wheeze Abdomen: Soft, non-tender, non-distended, normal bowel sounds, no guarding or rebound. Skin: Warm, dry, normal turgor, no rash MS/Extremity: Pulses equal, no cyanosis, neurovascular intact, FROM Neuro: COAx4, GCS 15, strength 5/5, CN 2-12 intact, normal cerebellar exam, normal gait, Psych: Normal behavior, mood, and affect normal Extremities-trace edema without any palpable cords, Homans sign is negative Results Laboratory and Microbiology Lab and Micro Result Laboratory Tests Test 03/14/25 19:44 03/14/25 19:50 White Blood Count 6.5 K/uL (4.8-10.8) Red Blood Count 4.34 MIL/uL (4.00-5.50) Hemoglobin 12.4 g/dL (12.0-16.0) Hematocrit 38.3 % (36-48) Mean Corpuscular Volume 88.2 fL (79-99) Mean Corpuscular Hemoglobin 28.6 pg (27.0-33.0) Mean Corpuscular Hemoglobin Concent 32.4 g/dL (32.0-36.0) Red Cell Distribution Width 14.4 % (11.0-15.5) Platelet Count 307 K/uL (130-400) Mean Platelet Volume 9.5 fL (7.5-10.5) Immature Granulocyte % (Auto) 0.8 % (0-1) Neutrophils (%) (Auto) 77.4 % (40.0-77.0) H Lymphocytes (%) (Auto) 19.1 % (21.0-51.0) L Monocytes (%) (Auto) 2.0 % (3.0-13.0) L Eosinophils (%) (Auto) 0.2 % (0.0-8.0) Basophils (%) (Auto) 0.5 % (0.0-5.0) Neutrophils # (Auto) 5.0 K/uL (1.8-7.7) Lymphocytes # (Auto) 1.2 K/uL (1.0-4.8) Monocytes # (Auto) 0.1 K/uL (0.1-1.0) Eosinophils # (Auto) 0.01 K/uL (0.00-0.70) Basophils # (Auto) 0.03 K/uL (0.00-0.20) Absolute Immature Granulocyte (auto 0.05 K/uL (0-1) Nucleated Red Blood Cells 0.0 % (0.0-0.19) Sodium Level 138 mmol/L (136-145) Potassium Level 4.2 mmol/L (3.5-5.1) Chloride Level 105 mmol/L (101-111) Carbon Dioxide Level 24 mmol/L (21-32) Blood Urea Nitrogen 11 mg/dL (7-18) Creatinine 0.9 mg/dL (0.5-1.0) Glomerular Filtration Rate Calc 68 mL/min (>90) Random Glucose 212 mg/dL (70-105) H Total Calcium 9.0 mg/dL (8.5-10.1) Urine Color COLORLESS (YELLOW) Urine Appearance CLEAR (CLEAR) Urine pH 5.5 (5.0-8.0) Urine Specific [place] 1.004 (1.001-1.031) Urine Protein NEGATIVE mg/dL (NEGATIVE) Urine Glucose (UA) 500 mg/dL (NEGATIVE) H Urine Ketones NEGATIVE mg/dL (NEGATIVE) Urine Occult Blood NEGATIVE (NEGATIVE) Urine Nitrate NEGATIVE (NEGATIVE) Urine Bilirubin NEGATIVE mg/dL (NEGATIVE) Urine Urobilinogen 0.2 mg/dL (0.2-1.0) Urine Leukocyte Esterase NEGATIVE [place]/uL Urine RBC 0-1 /HPF (0-1) Urine WBC None /HPF (0-1) Urine Bacteria None /HPF (None Seen) Labs Reviewed?: Yes MDM MDM: Differential diagnosis: Acute bronchitis, viral syndrome, asthma exacerbation, pneumonia Rationale: Tests considered and ordered secondary to shared decision making include: Previous outside records reviewed: Old ER visits. Risk of complication and/or morbidity or mortality of patient management: None Medications-Per medication reconciliation Need for hospitalization: Patient does not meet criteria for hospitalization. Need for emergency major/minor surgery: No There are no social concerns with this patient. Prescription drug management Prescriptions will include symptomatic care Patient's prior external medical records from other ER visits were reviewed by me as indicated. Prior testing and results from previous visits were reviewed. Prior tests were taken into account with medical decision making and resource utilization, independent historian/historians were used to obtain complete medical history. I independently interpreted the test that were performed, results were reviewed by me and considered findings on radiology if ordered. Medical management and examination interpretation discussions were had by me with other qualified healthcare professionals as indicated for the patient's care. ED Course Orders Procedure Category Date Status Time Albuterol 0.083% PHA 03/14/25 In Process 2.5mg/3ml (Proventil 19:30 Methylprednisolone PHA 03/14/25 Complete Succ 125mg (Solu-Medr 19:30 Cbc With Differential LAB 03/14/25 Complete 19:24 Basic Metabolic Panel LAB 03/14/25 Complete 19:24 Urinalysis Profile LAB 03/14/25 Complete 19:24 Chest 1vw RAD 03/14/25 Taken 19:24 Current Medications Medications (Trade) Dose Ordered Sig/[place] Route PRN Reason Start Time Stop Time Status Last Admin Dose Admin Albuterol Sulfate (Proventil 0.083% 2.5mg/3ml) 2.5 mg Q20M PRN IH SHORTNESS OF BREATH 03/14/25 19:30 Methylprednisolone Sodium Succinate (Solu-medROL 125MG) 125 mg ONCE ONCE IM 03/14/25 19:30 03/14/25 19:31 DC 03/14/25 19:40 Vital Signs Date Time Temp Pulse Resp B/P (MAP) Pulse Ox O2 Delivery O2 Flow Rate FiO2 03/14/25 18:12 99.3 94 20 146/64 96 Room Air* 0 21 03/14/25 18:05 99.3 94 22 95 Room Air 0 7:00 p.m. patient was signed out to me. I have assessed him and written the whole note We will perform diagnostic labs, advanced imaging and administer medications according to the patient's complaint. Once the results are available, will review and personally interpreted the labs to rule out any acute life- threatening emergency the trach require immediate intervention and treatment. I will then re-evaluate the patient after treatment and diagnostic exams have return to determine whether the patient requires any further testing, can safely be discharged home or need further admission to hospital for additional treatment and evaluation. Labs reviewed CBC with a normal limits BNP 7 is with a normal limits except for glucose which is 212, urinalysis is unremarkable . Chest x-ray reviewed no acute infiltrate suggestive of a pneumonia Trial of steroid bronchodilator and we will discharge her on a short course of s teroid and antibiotic azithromycin. DX & DISP Disposition: Discharge Departure Impression: Primary Impression: Acute bronchitis Condition: Stable Scripts Azithromycin (Azithromycin) 250 Mg Tablet 1 TAB PO AD for 5 Days, #6 TAB 0 Refills 2 the first day followed by 1 for days 2-5 Prov: RHODA LANDEROS MD 03/14/25 Prednisone (Prednisone) 20 Mg Tablet 1 TAB PO AD for 6 Days, #14 TAB 0 Refills TAKE 1 TAB BY MOUTH THREE TIMES PER DAY X3 DAYS, THEN TAKE 1 TAB BY MOUTH TWICE A DAY X2 DAYS, THEN TAKE 1 TAB BY MOUTH ONCE A DAY X1 DAY. Prov: RHODA LANDEROS MD 03/14/25 Additional Instructions: Patient and the caregiver have been informed of all the diagnostic tests and the imaging conducted during the today's visit to the emergency room and has verbalized understanding of the results I have personally reviewed and interpr eted all diagnostic exams performed here in the ER today as well as the vital signs documented by the nursing staff. The patient is now being discharged to home and should follow up with the primary care physician or the specialist as directed by the ER staff. Follow-up with primary care provider in 1 to 2 days. Take medications as directed here in the emergency room. Okay to continue home medications unless otherwise discussed during your visit in the emergency room today. Return to your nearest emergency room if symptoms worsen or if there is no improvement. Call 911 if you need immediate assistance. Take Tylenol or Motrin [id number] as needed and if no contraindications are present. Increase oral hydration. A wound culture or urine culture was ordered here in the emergency room department please follow-up with primary care provider and advise them to get repeat ports from our facility. If you had any Jack wrap/splints that were applied here, please do not remove them until you see your primary care or specialty. Referrals: EDUARDO DANIELSON M.D. (PCP) KATE RAJPUT MD March 14, 2025 18:07 RHODA LANDEROS MD March 14, 2025 20:14
[2025-03-14] MEDS ORDERED: ALBUTEROL 0.083% 2.5 MG/3 ML INH IH PRN (19:30)
[2025-03-14] MEDS: Solu-medROL 125MG VIAL IM ONE (19:40)
[2025-03-14 19:50] LABS: BASOPHILS # (AUTO) 0.03 K/uL (0.00-0.20); BASOPHILS % (AUTO) 0.5 % (0.0-5.0); EOSINOPHILS # (AUTO) 0.01 K/uL (0.00-0.70); EOSINOPHILS % (AUTO) 0.2 % (0.0-8.0); HEMATOCRIT 38.3 % (36-48); IMMATURE GRANULOCYTE ABSOLUTE 0.05 K/uL (0-1); LYMPHOCYTES # (AUTO) 1.2 K/uL (1.0-4.8); LYMPHOCYTES % (AUTO) 19.1 % (21.0-51.0); MEAN CORPUSCULAR HEMOGLOBIN 28.6 pg (27.0-33.0); MEAN CORPUSCULAR HGB CONC 32.4 g/dL (32.0-36.0); MEAN CORPUSCULAR VOLUME 88.2 fL (79-99); MONOCYTES # (AUTO) 0.1 K/uL (0.1-1.0); NEUTROPHILS % (AUTO) 77.4 % (40.0-77.0); PLATELET COUNT (AUTO) 307 K/uL (130-400); RED BLOOD CELL COUNT(AUTO) 4.34 MIL/uL (4.00-5.50); RED CELL DISTRIBUTION WIDTH 14.4 % (11.0-15.5); WHITE BLOOD COUNT (AUTO) 6.5 K/uL (4.8-10.8)
[2025-03-14 20:00] LABS: ADD UA MICROSCOPIC YES; APPEARANCE,URINE CLEAR (CLEAR); BILIRUBIN,URINE NEGATIVE (NEGATIVE); COLOR,URINE COLORLESS (YELLOW); GLUCOSE, URINE (UA) 500 mg/dL (NEGATIVE); KETONES,URINE NEGATIVE (NEGATIVE); LEUKOCYTE ESTERASE ,URINE NEGATIVE Leu/uL (NEGATIVE); NITRATE,URINE NEGATIVE (NEGATIVE); OCCULT BLOOD,URINE NEGATIVE (NEGATIVE); PH,URINE 5.5 (5.0-8.0); PROTEIN,URINE NEGATIVE (NEGATIVE); UROBILINOGEN,URINE 0.2 mg/dL (0.2-1.0)
[2025-03-14 20:01] LABS: RBC,URINE 0-1 /HPF (0-1)
[2025-03-14 20:06] LABS: CREATININE 0.9 mg/dL (0.5-1.0); POTASSIUM 4.2 mmol/L (3.5-5.1)
--- NOTE | 2025-03-14 20:09 | HMCIMG ---
CHEST 1VW HISTORY: Cough COMPARISON: 05/01/2024 FINDINGS: A frontal projection of the chest was obtained. No acute pulmonary infiltrates is seen. The heart is normal in size. Prominent interstitial markings are seen. Postoperative changes are seen of the left shoulder. No evidence of aortic calcification is seen. IMPRESSION: 1. No acute pulmonary infiltrate is seen. Prominent interstitial markings are seen.
[2025-03-14] MEDS ORDERED: PRED20TA3 PO (20:14)
[2025-03-14] MEDS ORDERED: AZIT250T9 PO (20:14)
[2025-03-14 20:25] VITALS: BP 144/64; TEMP 99.3; O2SAT 96
--- NOTE | 2025-03-14 20:27 | NUR ---
DC PEND RT NEB TREATMENT
[2025-03-14 20:30] VITALS: PULSE 90; RESP 19
== END 2025-03-14 20:36 | disposition home or self-care (01) ==
LOC: EDH 17:59
DX: J20.9 Acute bronchitis, unspecified (principal); E11.9 Type 2 diabetes mellitus without complications; E78.00 Pure hypercholesterolemia, unspecified; I10 Essential (primary) hypertension; J45.909 Unspecified asthma, uncomplicated; Z79.84 Long term (current) use of oral hypoglycemic drugs; Z79.899 Other long term (current) drug therapy; Z88.0 Allergy status to penicillin
CPT/HCPCS: 99284; 71045; 80048; 85025; 81001; 36415; 96372; 94640; J2919

== ENCOUNTER 2025-03-20 11:33 | Observation (INO) | payer OTHER, MEDICARE ==
[~2025-03-20] VITALS: Ht 142.2 cm; Wt 71.4 kg
[~2025-03-20 11:33] MED LIST changes: +AMIT50TA14 PO; -AMIT50TA3 PO; +PRED20TA3 PO
--- NOTE | 2025-03-20 11:45 | ERN ---
General Chief Complaint: Shortness of Breath Stated Complaint: SENT BY DR Puentes Seen by MD: 11:34 Source: patient History of Present Illness Initial Comments Patient is a 69-year-old female coming in complaining of cough and congestion for several weeks. Patient was evaluated six days ago and was told she had a possible pneumonia. Patient states that she has continued to have symptoms and was seen by her PCP sent over for further evaluation. Allergies: Coded Allergies: Penicillins (Unverified Allergy, Unknown, 04/07/19) Home Meds Active Scripts Azithromycin (Azithromycin) 250 Mg Tablet, 1 TAB PO AD for 5 Days, #6 TAB 0 Refills 2 the first day followed by 1 for days 2-5 Prov:RHODA LANDEROS MD 03/14/25 Prednisone (Prednisone) 20 Mg Tablet, 1 TAB PO AD for 6 Days, #14 TAB 0 Refills TAKE 1 TAB BY MOUTH THREE TIMES PER DAY X3 DAYS, THEN TAKE 1 TAB BY MOUTH TWICE A DAY X2 DAYS, THEN TAKE 1 TAB BY MOUTH ONCE A DAY X1 DAY. Prov:RHODA LANDEROS MD 03/14/25 Mupirocin (Bactroban 2% Oint) 2 % Oint, 1 APPL TP TID for 5 Days, #15 APPL Prov:ZORAN MURRAY NP 02/01/24 Azithromycin (Azithromycin) 250 Mg Tablet, 250 MG PO DAILY for 5 Days, #6 TAB Take 2 now then 1 daily until complete. Prov:CLARA ELDER 07/06/23 Fluticasone Propionate (Flonase Nasal [place]) 50 Mcg/[place], 50 MCG NASAL DAILY PRN for NASAL CONGESTION for 10 Days, #1 SPRAY Prov:CLARA ELDER 07/06/23 Benzonatate (Benzonatate) 200 Mg Capsule, 200 MG PO TID PRN for COUGH for 14 Days, #42 CAP Prov:CLARA ELDER 07/06/23 Methylprednisolone (Medrol) 4 Mg Tab.ds.pk, 4 MG PO AD for 6 Days, #1 PACK Prov:ADIA DELGADO MD 10/31/22 Nitrofurantoin Macrocrystal (Nitrofurantoin) 100 Mg Capsule, 100 MG PO BID, #14 CAP Prov:CHELY MATOSP 05/03/22 Acetaminophen (Tylenol) 500 Mg Tab, 500 MG PO Q4PRN, #30 TAB Prov:CHELY MATOS [employer]WAY CAR 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 05/03/22 Nitrofurantoin/Nitrofuran Mac (Macrobid) 100 Mg Cap, 100 MG PO BID for 7 Days, #14 CAP Prov:CANDIS GROVER FINAL ASSEMBLER 07/24/21 Amitriptyline HCl (Amitriptyline HCl) 50 Mg Tablet, 50 MG PO DAILY for 30 Days, #30 TAB Prov:CANDIS GROVER FINAL ASSEMBLER 07/24/21 Metoclopramide HCl (Reglan) 5 Mg Tablet, 5 MG PO TIDAC for for n/v abd pain(gastroparesis for 30 Days, #90 TAB Prov:CANDIS GROVER FINAL ASSEMBLER 07/24/21 Reported Medications Rosuvastatin Calcium (Rosuvastatin Calcium) 10 Mg Tablet, 10 MG PO HS, TAB 07/23/21 Ergocalciferol (Vitamin D2) (Vitamin D2) 50 Mcg Capsule, 25 MCG PO 2xweek, CAP 07/22/21 Linagliptin (Tradjenta) 5 Mg Tablet, 5 MG PO DAILY, TAB 07/17/19 Amlodipine Besylate (Amlodipine Besylate) 5 Mg Tablet, 5 MG PO HS, TAB 07/17/19 Metoprolol Succinate (Metoprolol Succinate) 25 Mg Tab.er.24h, 25 MG PO HS, TAB 07/17/19 Isosorbide Mononitrate (Isosorbide Mononitrate ER) 30 Mg Tab.er.24h, 30 MG PO DAILY, TAB 07/17/19 Aspirin (Aspirin) 81 Mg Tab.chew, 81 MG PO daily prn, TAB.CHEW 05/30/16 Nitroglycerin (Nitroglycerin) 0.4 Mg Tab.subl, 0.4 MG SL prn for chest pain, TAB.SL 10/03/14 Past Medical History Past Medical History: Diabetes-Type II, High Cholesterol, Hypertension Past Surgical History: Other Surgical History Other: RT KIDNEY REMOVED Family History Family History: HTN Social History Social History: Negative, Lives with family Female( History) History: Not Applicable ROS Dictation CONSTITUTIONAL: No chills, no fever, no weakness, no diaphoresis, no malaise. HEAD/FACE: No signs of trauma. EENT: No eye pain, no blurred vision, no tearing, no double vision, no ear pain, no ear discharge, no nose pain, no nasal congestion, no throat pain, no throat swelling, no mouth pain. RESPIRATORY: cough, no orthopnea, SOB, no stridor, no wheezing. CARDIOVASCULAR: No chest pain, no edema, no palpitations, no syncope. GASTROINTESTINAL/ABDOMINAL: No abdominal pain, no constipation, no diarrhea, no nausea, no vomiting. GENITOURINARY: No abnormal discharge, no dysuria, no frequent urination, no hematuria. No complaints of pain in the genitals. MUSCULOSKELETAL: No back pain, no gout, no joint pain, no joint swelling, no muscle pain, no muscle stiffness, no neck pain. INTEGUMENTARY: No change in color, no change in hair/nails, no dryness, no lesion, no lumps, no rash. NEUROLOGICAL/PSYCH: No anxiety, not depressed, no emotional problem, no headache, no numbness, no pre-existing deficit, no history of seizures, no brayan mors, no weakness. HEMATOLOGIC/LYMPHATIC: Not anemic, no history of blood clots, no apparent bleeding, no bruising, glands not swollen. All Systems Negative, Except as Noted. Physical Exam Physical Exam Dictation VITAL SIGNS: Reviewed. GENERAL APPEARANCE: Alert, oriented x3, no acute distress, obese. HEAD AND FACE: Non-traumatic. EYES: PERRL, pink conjunctivas, eyelid no trauma, anterior chamber clear. EARS: Pinnas intact and no signs of trauma or erythema. Ear canals clear and no discharge. TMs no erythema. NOSE: No discharge, no bleeding. OROPHARYNX: Mouth normal, teeth no caries, tongue pink. Pharynx clear, no erythema. Tonsils no exudates, no abscesses noted. Mucous membrane moist. NECK: Supple, non-tender, no thyromegaly, no masses, no JVD, no bruits. BREAST: Deferred. CHEST: No tenderness, no crepitus, no paradoxical movement, no retractions. LUNGS: Clear, well-ventilated, symmetric, no rales, no wheezing, no rhonchi, no stridor, good breath sounds bilaterally. HEART: Regular rate, regular rhythm, no murmur, no gallops. VASCULAR: No peripheral edema. ABDOMEN: Soft, positive bowel sounds, nondistended, no guarding, nontender, no rebound, no masses no hepatomegaly, no splenomegaly, no Antoine's sign, no hernias. RECTAL: Deferred. GENITAL: Deferred. NEUROLOGICAL: Normal speech, gross motor function intact, gross sensory function intact. MUSCULOSKELETAL: Neck nontender, full range of motion, back nontender, full range of motion. EXTREMITIES: Nontender, full range of motion. SKIN: Color pink, dry, no turgor, no rash, no lacerations, no abrasions, no contusions. LYMPHATICS: Deferred. Results Laboratory and Microbiology Lab and Micro Result Laboratory Tests Test 03/20/25 10:06 03/20/25 11:52 03/20/25 12:11 Influenza Type A Antigen Negative For Type A Influenza Type B Antigen Negative For Type B SARS-CoV-2, RNA, NAAT NEGATIVE SARS CoV-2 Group A Streptococcus Rapid negative (NEGATIVE) Urine Color LIGHT-YELLOW (YELLOW) Urine Appearance CLEAR (CLEAR) Urine pH 5.5 (5.0-8.0) Urine Specific [place] 1.014 (1.001-1.031) Urine Protein NEGATIVE mg/dL (NEGATIVE) Urine Glucose (UA) 50 mg/dL (NEGATIVE) H Urine Ketones NEGATIVE mg/dL (NEGATIVE) Urine Occult Blood NEGATIVE (NEGATIVE) Urine Nitrate NEGATIVE (NEGATIVE) Urine Bilirubin NEGATIVE mg/dL (NEGATIVE) Urine Urobilinogen 0.2 mg/dL (0.2-1.0) Urine Leukocyte Esterase 75 Edwin/uL (NEGATIVE) H Urine RBC 0-1 /HPF (0-1) Urine WBC 2-5 /HPF (0-1) H Urine Squamous Epithelial Cells RARE /HPF (0-2) Urine Transitional Epithelial Cells RARE /HPF (None Seen) Urine Bacteria None /HPF (None Seen) White Blood Count 10.3 K/uL (4.8-10.8) Red Blood Count 4.26 MIL/uL (4.00-5.50) Hemoglobin 12.0 g/dL (12.0-16.0) Hematocrit 36.9 % (36-48) Mean Corpuscular Volume 86.6 fL (79-99) Mean Corpuscular Hemoglobin 28.2 pg (27.0-33.0) Mean Corpuscular Hemoglobin Concent 32.5 g/dL (32.0-36.0) Red Cell Distribution Width 14.9 % (11.0-15.5) Platelet Count 328 K/uL (130-400) Mean Platelet Volume 9.7 fL (7.5-10.5) Immature Granulocyte % (Auto) 1.6 % (0-1) H Neutrophils (%) (Auto) 59.3 % (40.0-77.0) Lymphocytes (%) (Auto) 31.2 % (21.0-51.0) Monocytes (%) (Auto) 5.2 % (3.0-13.0) Eosinophils (%) (Auto) 2.3 % (0.0-8.0) Basophils (%) (Auto) 0.4 % (0.0-5.0) Neutrophils # (Auto) 6.1 K/uL (1.8-7.7) Lymphocytes # (Auto) 3.2 K/uL (1.0-4.8) Monocytes # (Auto) 0.5 K/uL (0.1-1.0) Eosinophils # (Auto) 0.24 K/uL (0.00-0.70) Basophils # (Auto) 0.04 K/uL (0.00-0.20) Absolute Immature Granulocyte (auto 0.17 K/uL (0-1) Nucleated Red Blood Cells 0.0 % (0.0-0.19) Sodium Level 140 mmol/L (136-145) Potassium Level 3.7 mmol/L (3.5-5.1) Chloride Level 106 mmol/L (101-111) Carbon Dioxide Level 23 mmol/L (21-32) Blood Urea Nitrogen 15 mg/dL (7-18) Creatinine 0.8 mg/dL (0.5-1.0) Glomerular Filtration Rate Calc 79 mL/min (>90) Random Glucose 133 mg/dL (70-105) H Lactic Acid Level 1.7 mmol/L (0.8-2.5) Total Calcium 8.7 mg/dL (8.5-10.1) Total Creatine Kinase 58 U/L (21-232) # Troponin I High Sensitivity 11 ng/L (4-50) B-Type Natriuretic Peptide 7 pg/mL (0-100) Labs Reviewed?: Yes EKG/XRAY/US/CT/MRI EKG Comment 03/20/2025 TIME 11:51 A.M. VENTRICULAR RATE 97 SINUS RHYTHM HI [address] WAVE ELEVATION OR DEPRESSION X-RAY Comment [facility] [address] [place], [place] [id number] IMAGING REPORT Signed PATIENT: MAIDA ESCOBAR MR#: [id number] : 1955 SEX: F AGE: 69 LOCATION: [facility] ORDER [id number] STATUS: REG ER REPORT#: [id number] SERVICE 1142 REASON: fever ORDERING PHYSICIAN: TRAV COLINDRES MD PROCEDURE: CXR1VW - CHEST 1VW CHEST 1VW HISTORY: Fever COMPARISON: 03/14/2025 FINDINGS: A frontal projection of the chest was obtained. No acute pulmonary infiltrates is seen. The heart is enlarged. Degenerative changes are seen. No evidence of aortic calcification is seen. IMPRESSION: 1. No acute pulmonary infiltrate is seen. DICTATED BY: ODILIA CODY MD DATE: 03/20/25 123 ELECTRONICALLY SIGNED BY: ODILIA CODY MD DATE: 03/20/25 1237 [facility] MDM: Differential diagnosis: RESPIRATORY DISTRESS, FAILED OUTPATIENT THERAPY, RATIONALE: TESTS CONSIDERED AND ORDERED SECONDARY TO SHARED DECISION MAKING INCLUDE: LABS, ECG AND RADIOLOGY PREVIOUS OUTSIDE RECORDS REVIEWED: OLD ER VISITS. RISK OF COMPLICATION AND/OR MORBIDITY OR MORTALITY OF PATIENT MANAGEMENT: NONE MEDICATIONS-PER MEDICATION RECONCILIATION NEED FOR HOSPITALIZATION: PATIENT DOES MEET CRITERIA FOR HOSPITALIZATION. NEED FOR EMERGENCY MAJOR/MINOR SURGERY: NO THERE ARE NO SOCIAL CONCERNS WITH THIS PATIENT. PRESCRIPTION DRUG MANAGEMENT PRESCRIPTIONS WILL INCLUDE SYMPTOMATIC CARE PATIENT'S PRIOR EXTERNAL MEDICAL RECORDS FROM OTHER ER VISITS WERE REVIEWED BY ME INDICATED. PRIOR TESTING AND RESULTS FROM PREVIOUS VISITS WERE REVIEWED. PRIOR TESTS WERE TAKEN INTO ACCOUNT WITH MEDICAL DECISION MAKING AND RESOURCE UTILIZATION, INDEPENDENT HISTORIAN/HISTORIANS WERE USED TO OBTAIN COMPLETE MEDICAL HISTORY. I INDEPENDENTLY INTERPRETED THE TEST THAT WERE PERFORMED, RESULTS WERE REVIEWED BY ME AND CONSIDERED FINDINGS ON RADIOLOGY IF ORDERED. 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 PATIENT WILL BE ADMITTED UNDER THE CARE OF [facility] FOR ONGOING EVALUATION AND MANAGEMENT. ED Course Orders Procedure Category Date Status Time Cbc With Differential LAB 03/20/25 Complete 11:42 Blood Cult WILLIAN 03/20/25 In Process 11:42 Urinalysis Profile LAB 03/20/25 Complete 11:42 Culture Urine WILLIAN 03/20/25 In Process 11:42 Creatine Kinase, Total LAB 03/20/25 Complete 11:42 Troponin I High LAB 03/20/25 Complete Sensitivity 11:42 Lactic Acid LAB 03/20/25 Complete 11:42 Basic Metabolic Panel LAB 03/20/25 Complete 11:42 Chest 1vw RAD 03/20/25 Resulted 11:42 Covid Rna Naat LAB 03/20/25 Complete 11:42 Influenza Type A & B, LAB 03/20/25 Complete Rapid 11:42 Rapid (Group A Strep) LAB 03/20/25 Complete 11:42 12 Lead Ekg Tracing- EKG 03/20/25 Complete Technical 11:42 Ipratropium/Albuterol PHA 03/20/25 Complete Neb (Duoneb) 12:00 B-Type Natriuretic LAB 03/20/25 Complete Peptide 13:45 Current Medications Medications (Trade) Dose Ordered Sig/Mamie Route PRN Reason Start Time Stop Time Status Last Admin Dose Admin Albuterol (DUOneb) 1 udvial ONCE ONCE IH 03/20/25 12:00 03/20/25 12:01 DC 03/20/25 12:36 Vital Signs Date Time Temp Pulse Resp B/P (MAP) Pulse Ox O2 Delivery O2 Flow Rate FiO2 03/20/25 13:48 98.1 92 20 132/69 96 Room Air* 0 03/20/25 12:36 86 20 03/20/25 12:28 98.1 87 20 138/67 97 Room Air* 0 21 03/20/25 11:42 99.0 97 20 109/67 97 Room Air* 0 21 03/20/25 11:42 98.2 91 18 109/67 96 DX & DISP Disposition: Inpatient Decision to Admit Time: 14:32 Departure Impression: Primary Impression: Acute bronchitis Condition: Stable Referrals: EDUARDO DANIELSON M.D. (PCP) Time of Disposition: 14:32 TRAV COLINDRES MD March 20, 2025 11:45
[2025-03-20 12:08] LABS: APPEARANCE,URINE CLEAR (CLEAR); BILIRUBIN,URINE NEGATIVE (NEGATIVE); COLOR,URINE LIGHT-YELLOW (YELLOW); GLUCOSE, URINE (UA) 50 mg/dL (NEGATIVE); KETONES,URINE NEGATIVE (NEGATIVE); LEUKOCYTE ESTERASE ,URINE 75 Leu/uL (NEGATIVE); NITRATE,URINE NEGATIVE (NEGATIVE); OCCULT BLOOD,URINE NEGATIVE (NEGATIVE); PH,URINE 5.5 (5.0-8.0); PROTEIN,URINE NEGATIVE (NEGATIVE); UROBILINOGEN,URINE 0.2 mg/dL (0.2-1.0)
[2025-03-20 12:14] LABS: ADD UA MICROSCOPIC YES
[2025-03-20 12:21] LABS: MUCUS,URINE RARE LPF (None Seen); RBC,URINE 0-1 /HPF (0-1); SQUAMOUS EPITHELIAL CELL,UR RARE /HPF (0-2); TRANSITIONAL EPI CELLS,URINE RARE /HPF (None Seen)
[2025-03-20 12:24] LABS: BASOPHILS # (AUTO) 0.04 K/uL (0.00-0.20); BASOPHILS % (AUTO) 0.4 % (0.0-5.0); EOSINOPHILS # (AUTO) 0.24 K/uL (0.00-0.70); EOSINOPHILS % (AUTO) 2.3 % (0.0-8.0); HEMATOCRIT 36.9 % (36-48); IMMATURE GRANULOCYTE ABSOLUTE 0.17 K/uL (0-1); LYMPHOCYTES # (AUTO) 3.2 K/uL (1.0-4.8); LYMPHOCYTES % (AUTO) 31.2 % (21.0-51.0); MEAN CORPUSCULAR HEMOGLOBIN 28.2 pg (27.0-33.0); MEAN CORPUSCULAR HGB CONC 32.5 g/dL (32.0-36.0); MEAN CORPUSCULAR VOLUME 86.6 fL (79-99); MONOCYTES # (AUTO) 0.5 K/uL (0.1-1.0); MONOCYTES % (AUTO) 5.2 % (3.0-13.0); NEUTROPHILS # (AUTO) 6.1 K/uL (1.8-7.7); NEUTROPHILS % (AUTO) 59.3 % (40.0-77.0); PLATELET COUNT (AUTO) 328 K/uL (130-400); RED BLOOD CELL COUNT(AUTO) 4.26 MIL/uL (4.00-5.50); RED CELL DISTRIBUTION WIDTH 14.9 % (11.0-15.5); WHITE BLOOD COUNT (AUTO) 10.3 K/uL (4.8-10.8)
[2025-03-20 12:36] VITALS: PULSE 86; RESP 20
[2025-03-20] MEDS: IpraTROPium/alBUTERol SULFATE 3 ML SOLUTION IH ONE (12:36)
--- NOTE | 2025-03-20 12:37 | HMCIMG ---
CHEST 1VW HISTORY: Fever COMPARISON: 03/14/2025 FINDINGS: A frontal projection of the chest was obtained. No acute pulmonary infiltrates is seen. The heart is enlarged. Degenerative changes are seen. No evidence of aortic calcification is seen. IMPRESSION: 1. No acute pulmonary infiltrate is seen.
[2025-03-20 12:38] LABS: CREATININE 0.8 mg/dL (0.5-1.0); POTASSIUM 3.7 mmol/L (3.5-5.1)
[2025-03-20 12:44] LABS: RAPID GROUP A STREP negative (NEGATIVE)
[2025-03-20 12:54] LABS: INFLUENZA TYPE A Negative For Type A (NEGATIVE); INFLUENZA TYPE B Negative For Type B (NEGATIVE)
[2025-03-20 12:55] LABS: SARS-CoV-2, RNA, NAAT NEGATIVE SARS CoV-2 (NEGATIVE)
--- NOTE | 2025-03-20 13:22 | EKG ---
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
--- NOTE | 2025-03-20 15:23 | HP ---
[facility] HISTORY & PHYSICAL Date Patient Seen: March 20, 2025 Time of Visit: 15:23 Supervising Physician: [Juve Loya MD Primary Care Physician: Kell Smith MD Outpatient Specialists: [ ] Inpatient Consults: [ ] PROBLEM LIST: Acute Bronchitis, POA Suspected CAP POA COPD exacerbation POA Intractable cough CAD with prior stent placement. Left singular kidney Obesity BMI 35 Essential Hypertension DM T2 HPI: This is a 69-year-old obese female with a cough x2 weeks who was sent from cardiology clinic for suspected community-acquired pneumonia. Patient has a history of hypertension, hyperlipidemia, current smoker, CAD, and COPD. Patient reports cough x2 weeks and progressively worsened. Laboratory in ED unremarkable. Chest x-ray unremarkable. We will order CT chest to rule out pneumonia. Serology exams including influenza type a and B COVID-19 and Group A strep throat negative. We will admit patient to medical-surgical floor for 24 hour observation. We will start empiric antibiotics with Rocephin and azithromycin. Given her hist ory of smoking and suspected COPD exacerbation we will start prednisone 20 mg p.o. daily x5 days. PAST MEDICAL HX: see above PAST SURGICAL HX: noncontributory SOCIAL HISTORY: No tobacco, ETOH, or illicit drug use Coded Allergies: Penicillins (Unverified Allergy, Unknown, 04/07/19) REVIEW OF SYSTEMS: Const: no fever, fatigue, or weight changes Eyes: no recent vision problems ENT: No congestion, ear pain, or sore throat C/V: no chest pain, palpitations or edema Resp: Yes for cough, congestion, wheezing and shortness of breaths. GI: No abdominal pain, nausea, vomiting, constipation, or diarrhea : No incontinence of or dyuria M/S: No joint or pain swelling Skin: No rash Neuro: no headache, focal numbness, or weakness, dizziness or seizures Psych: no depression or anxiety Heme: no abnormal bruising or bleeding Lymph: no swollen glands PHYSICAL EXAM: GENERAL: alert, weak, awake oriented x 3 HEENT: EOMI, Sclera non icteric, moist mucosa NECK: Supple, no JVD, trachea midline LUNGS: Rhonchi to bilateral lobes. Expiratory Wheezing to left lower lobe. HEART: Regular rate and rhythm. Normal S1 and S2, without murmurs ABD: Abdomen soft, nontender. Bowel sounds present EXT: No clubbing cyanosis or edema NEURO: Alert and oriented to person, follows commands Vital Signs (last 8hr) Date Time Temp Pulse Resp B/P (MAP) Pulse Ox O2 Delivery O2 Flow Rate FiO2 03/20/25 13:48 98.1 92 20 132/69 96 Room Air* 0 21 03/20/25 12:36 86 20 03/20/25 12:28 98.1 87 20 138/67 97 Room Air* 0 21 03/20/25 11:42 99.0 97 20 109/67 97 Room Air* 0 21 03/20/25 11:42 98.2 91 18 109/67 96 LABS: Hematology Labs: Test 03/20/25 12:11 Range/Units White Blood Count 10.3 4.8-10.8 K/uL Red Blood Count 4.26 4.00-5.50 MIL/uL Hemoglobin 12.0 12.0-16.0 g/dL Hematocrit 36.9 36-48 % Mean Corpuscular Volume 86.6 79-99 fL Mean Corpuscular Hemoglobin 28.2 27.0-33.0 pg Mean Corpuscular Hemoglobin Concent 32.5 32.0-36.0 g/dL Red Cell Distribution Width 14.9 11.0-15.5 % Platelet Count 328 130-400 K/uL Mean Platelet Volume 9.7 7.5-10.5 fL Immature Granulocyte % (Auto) 1.6 H 0-1 % Neutrophils (%) (Auto) 59.3 40.0-77.0 % Lymphocytes (%) (Auto) 31.2 21.0-51.0 % Monocytes (%) (Auto) 5.2 3.0-13.0 % Eosinophils (%) (Auto) 2.3 0.0-8.0 % Basophils (%) (Auto) 0.4 0.0-5.0 % Neutrophils # (Auto) 6.1 1.8-7.7 K/uL Lymphocytes # (Auto) 3.2 1.0-4.8 K/uL Monocytes # (Auto) 0.5 0.1-1.0 K/uL Eosinophils # (Auto) 0.24 0.00-0.70 K/uL Basophils # (Auto) 0.04 0.00-0.20 K/uL Absolute Immature Granulocyte (auto 0.17 0-1 K/uL Nucleated Red Blood Cells 0.0 0.0-0.19 % Chemistry Labs: Test 03/20/25 12:11 Range/Units Sodium Level 140 136-145 mmol/L Potassium Level 3.7 3.5-5.1 mmol/L Chloride Level 106 101-111 mmol/L Carbon Dioxide Level 23 21-32 mmol/L Blood Urea Nitrogen 15 7-18 mg/dL Creatinine 0.8 0.5-1.0 mg/dL Glomerular Filtration Rate Calc 79 >90 mL/min Random Glucose 133 H 70-105 mg/dL Lactic Acid Level 1.7 0.8-2.5 mmol/L Total Calcium 8.7 8.5-10.1 mg/dL Total Creatine Kinase 58 # 21-232 U/L Troponin I High Sensitivity 11 4-50 ng/L B-Type Natriuretic Peptide 7 0-100 pg/mL DIAGNOSTICS / RADIOLOGY RESULTS: [Signed PATIENT: MAIDA ESCOBAR MR#: [id number] : 1955 SEX: F AGE: 69 LOCATION: [facility] ORDER 1144 STATUS: REG REPORT#: [id number] SERVICE 1142 REASON: fever ORDERING PHYSICIAN: TRAV COLINDRES MD PROCEDURE: CXR1VW - CHEST 1VW CHEST 1VW HISTORY: Fever COMPARISON: 03/14/2025 FINDINGS: A frontal projection of the chest was obtained. No acute pulmonary infiltrates is seen. The heart is enlarged. Degenerative changes are seen. No evidence of aortic calcification is seen. IMPRESSION: 1. No acute pulmonary infiltrate is seen. DICTATED BY: ODILIA CODY MD DATE: 03/20/251233 ELECTRONICALLY SIGNED BY: ODILIA CODY MD DATE: 03/20/25 1237 ] PLAN CT chest tube balloon pneumoniae Prednisone 20 mg p.o. daily Community-acquired pneumonia empiric antibiotics Given exposure of smoking for many years, patient has a developed COPD with exacerbation. Patient to follow up as outpatient at pulmonary clinic in two weeks for PFTs, we will continue with nebulizer treatments with DuoNeb Pul micort, steroids. Follow respiratory cultures Maintain O2 sats above 88% Gi PPX with protonix due to steroids smoking cessation Influenza a and B negative, COVID-19 negative, CT Chest NEURO: Minimize central acting medications as possible. Maintain fall precautions, adequate lighting during the day PULMONARY: Supplemental 02 as needed. Maintain aspiration precautions at all times CARDIOVASCULAR: Follow hemodynamics. Vital signs per facility protocol GI & NUTRITION: Continue with nutritional support. Continue stool softeners and laxatives as needed. KIDNEYS & ELECTROLYTES: Strict monitoring of intake, output and overall fluid balance. Avoid nephrotoxic medications to the extent possible. Medications to be dosed according to renal function. Monitor electrolytes and replace as needed ENDOCRINE: Maintain blood glucose between 100-180 at all times. Hypoglycemia protocol in place INFECTIOUS DISEASE: Trend temperature, WBC and procalcitonin level Follow cultures, deescalate antibiotics as soon as possible. Panculture if new onset fever ONCOLOGY/HEMATOLOGY/COAGULATION: Monitor for s/s of bleeding Monitor hemoglobin, coagulation studies as needed SKIN: Pressure ulcer prevention per facility protocol Specialty mattress ORTHO/REHAB: Continue PT/OT Prophylaxis: Continue GI and DVT prophylaxis Code Status: Full Resuscitation Disposition: TBD Other: Total patient care time exceeds 35 minutes excluding all procedures. ATTESTATION BY PHYSICIAN The patient has been seen and evaluated, the case has been discussed with the DENTAL PROFESSIONAL, I agree with the clinical findings and plan of care. Juve Loya MD, NELLY J ARNP March 20, 2025 15:23
[2025-03-20] MEDS ORDERED: acetaMINOPHEN 325 MG TAB PO PRN (15:30)
[2025-03-20] MEDS ORDERED: acetaMINOPHEN 650 MG SUPPOSITORY RC PRN (15:30)
[2025-03-20 16:25] VITALS: PULSE 80; RESP 20; O2SAT 97
[2025-03-20 16:29] LABS: ABG BASE EXCESS -1.7 mmol/L (-2.0-3.0); ABG HCO3 21.2 mmol/L (21.0-28.0); ABG OXYGEN SATURATION 94.5 % (94.0-98.0); ABG PCO2 31 mmHg (32-45); ABG PH 7.451 (7.350-7.450); PO2, ARTERIAL BG 67.4 mmHg (83.0-108.0); VENT MODE, BG RA (ROOM AIR)
[2025-03-20] MEDS: levoFLOXacin 750 MG/D5W 150 ML 150 ML IV SCH (17:01)
[2025-03-20] MEDS: predniSONE 20 MG TABLET PO ONE (17:01)
[2025-03-20] MEDS: BENZONATATE 100 MG CAPSULE PO PRN (17:03)
--- NOTE | 2025-03-20 17:11 | HMCIMG ---
CT CHEST WITHOUT CONTRAST INDICATION: Pneumonia evaluation TECHNIQUE: Routine axial images using 5 mm slice thickness were acquired from the lung apices to the bases without the administration of IV contrast.Coronal and sagittal reformatted images acquired for interpretation. CT was performed with one or more of the following dose reduction techniques: Automated exposure control, adjustment of the mA and/or kV according to patient size, or use of iterative reconstruction technique. COMPARISON: None FINDINGS: The heart size is normal. No pericardial effusion noted. The visualized great vessels and thoracic aorta are within normal limits. The trachea and airways are patent. No evidence for pulmonary nodule, consolidation, cavitary lesion, or other abnormal pulmonary parenchymal opacity. No axillary, hilar, or mediastinal lymphadenopathy. No pleural effusion or pneumothorax identified. Diffuse low attenuation of the liver parenchyma suggests fatty change.. Visible osseous structures are intact. IMPRESSION: Hepatic steatosis without evidence for pneumonia.
--- NOTE | 2025-03-20 18:08 | NUR ---
PENDING FAMILY TO BRING HOME MEDICATIONS.
[2025-03-20 18:44] VITALS: PULSE 89; RESP 18
[2025-03-20] MEDS: IpraTROPium/alBUTERol SULFATE 3 ML SOLUTION IH SCH (18:44)
[2025-03-20 18:47] VITALS: PULSE 89; RESP 19; O2SAT 95
--- NOTE | 2025-03-20 19:35 | NUR ---
PT CARE ASSUMED AT THIS TIME
[2025-03-20] MEDS: monteLUKAST sodIUM 10 MG TAB PO SCH (21:08)
[2025-03-20] MEDS: guaiFENesin 600 MG TABLET.ER PO SCH (21:08)
--- NOTE | 2025-03-20 21:20 | NUR ---
ATTEMPT TO GIVE REPORT AT THIS TIME. PENDING CALL BACK.
--- NOTE | 2025-03-20 22:03 | NUR ---
REPORT GIVEN TO MONALISA KHAN AT THIS TIME
[2025-03-20 22:20] VITALS: BP 134/73; PULSE 88; RESP 17; TEMP 98.2
[2025-03-20 22:40] VITALS: O2SAT 94
--- NOTE | 2025-03-20 23:03 | NUR ---
RECEIVED REPORT FROM NURSE MCLEAN. PATIENT IS ALERT AND ORIENTED, ABLE TO MAKE NEEDS KNOWN. ORIENTED PATIENT TO CALL LIGHT. PATIENT HAS JEWELRY ON, REQUESTED PATIENT SEND HOME VALUABLES WITH GRANDDAUGHTER IN AM. PATIENT CALM AND COOPERATIVE AT THIS TIME.
[2025-03-21] VITALS (15 sets, daily range): BP systolic 121–140; BP diastolic 59–68; PULSE 57–107; RESP 16–20; TEMP 98–98.4; O2SAT 93–95
[2025-03-21] MEDS ORDERED: ROSU40TA88 PO (00:05)
[2025-03-21] MEDS ORDERED: BUSP10TA3 PO (00:07)
[2025-03-21] MEDS ORDERED: PRED20TA3 PO (00:09)
[2025-03-21] MEDS ORDERED: AMOX1TAB16 PO (00:23)
[2025-03-21] MEDS ORDERED: FURO20TA4 PO (00:24)
[2025-03-21] MEDS ORDERED: TIZA2CAP9 PO (00:26)
[2025-03-21] MEDS ORDERED: GLIP2.5T23 PO (00:27)
[2025-03-21] MEDS ORDERED: CLON0.1T PO (00:30)
[2025-03-21] MEDS ORDERED: SERT-438 PO (00:30)
[2025-03-21] MEDS ORDERED: MECL25TA39 PO (00:30)
[2025-03-21 04:34] LABS: CREATININE 0.9 mg/dL (0.5-1.0); POTASSIUM 4.5 mmol/L (3.5-5.1); THYROID STIMULATING HORMONE 0.49 uIU/mL (0.36-3.74)
[2025-03-21] MEDS: predniSONE 20 MG TABLET PO SCH (08:13)
[2025-03-21] MEDS: PANTOPrazole 40 MG/VIAL IVP SCH (08:13)
[2025-03-21] MEDS: polyETHYLene GLYCol 3350 17 GM POWD.PACK PO SCH (08:14)
[2025-03-21] MEDS: ENOXAPARIN SODIUM 40 MG/0.4 ML SYRINGE SQ SCH (08:15)
[2025-03-21] MEDS: INSULIN humuLIN R 100 UNIT/ML 3ML SQ SCH (14:53)
[2025-03-21 16:05] LABS: CHOLESTEROL 171 mg/dL (<200); HDL CHOLESTEROL 73 mg/dL (35-85); LDL DIRECT 96 mg/dL (0-99); TRIGLYCERIDES 71 mg/dL (30-200)
[2025-03-21 16:09] LABS: HEMOGLOBIN A1C 8.3 % (4.0-6.0)
[2025-03-21] MEDS ORDERED: INSULIN humuLIN R 100 UNIT/ML 3ML SQ SCH (16:30)
--- NOTE | 2025-03-21 16:45 | NUR ---
INITIAL/DCP HOME Met w pt and family at the bedside to discuss dcp. EC is granddtr Cony Everett [phone]. PCP is Dr Kell Smith. Preferred pharmacy is [facility]. Pt denies any insecurities with food, jail, and/or utilities. She lives at home w her spouse and grand dtr. Pt is indep w ambulation and @ times requires assist w ADLs. Christian Donnelly is her provider 22hr/wk thru [facility]. She owns a nebulizer, wc, and sh chair. Transportation is provided by her granddtr. Discharge goal is to return home. Addendum: 03/21/25 at 1650 by WILLIS HAWK Amended: Links added.
--- NOTE | 2025-03-21 16:50 | PN ---
[facility] PROGRESS NOTE Date Patient Seen: March 21, 2025 Time of Visit: 1250 Supervising Physician: Dr. Soares Primary Care Physician: Kell Smith MD Outpatient Specialists: [ ] Inpatient Consults: [ ] PROBLEM LIST: Acute Bronchitis, POA Suspected CAP POA COPD exacerbation POA Acute complicated cystitis Intractable cough CAD with prior stent placement. Left singular kidney Obesity BMI 35 Essential Hypertension DM T2 INTERVAL HISTORY: 03/21 patient was seen and examined by bedside with family present. Patient is awake alert answers questions appropriately. At time of visit denies chest pain or shortness of breadth. Continues to reports dry cough. We will start patient on Tessalon Perles 100 mg t.i.d.. Patient currently pending urine culture. Patient's chest x-ray unremarkable patient's COVID and flu negative. We will repeat patient's labs tomorrow morning. And continue to monitor patient closely. If no acute events occurred and patient's symptoms improved plan is for discharge tomorrow morning REVIEW OF SYSTEMS: Twelve point review of system reviewed with patient all pertinent positives mentioned above otherwise negative PHYSICAL EXAM: GENERAL: alert, weak, awake oriented x 3 HEENT: EOMI, Sclera non icteric, moist mucosa NECK: Supple, no JVD, trachea midline LUNGS: Rhonchi to bilateral lobes. Expiratory Wheezing to left lower lobe. HEART: Regular rate and rhythm. Normal S1 and S2, without murmurs ABD: Abdomen soft, nontender. Bowel sounds present EXT: No clubbing cyanosis or edema NEURO: Alert and oriented to person, follows commands Vital Signs (last 8hr) Date Time Temp Pulse Resp B/P (MAP) Pulse Ox O2 Delivery O2 Flow Rate FiO2 03/21/25 13:49 101 20 03/21/25 12:00 98.2 100 18 138/59 93 Room Air 03/21/25 09:51 94 20 LABS: Hematology Labs: Test 03/20/25 12:11 Range/Units White Blood Count 10.3 4.8-10.8 K/uL Red Blood Count 4.26 4.00-5.50 MIL/uL Hemoglobin 12.0 12.0-16.0 g/dL Hematocrit 36.9 36-48 % Mean Corpuscular Volume 86.6 79-99 fL Mean Corpuscular Hemoglobin 28.2 27.0-33.0 pg Mean Corpuscular Hemoglobin Concent 32.5 32.0-36.0 g/dL Red Cell Distribution Width 14.9 11.0-15.5 % Platelet Count 328 130-400 K/uL Mean Platelet Volume 9.7 7.5-10.5 fL Immature Granulocyte % (Auto) 1.6 H 0-1 % Neutrophils (%) (Auto) 59.3 40.0-77.0 % Lymphocytes (%) (Auto) 31.2 21.0-51.0 % Monocytes (%) (Auto) 5.2 3.0-13.0 % Eosinophils (%) (Auto) 2.3 0.0-8.0 % Basophils (%) (Auto) 0.4 0.0-5.0 % Neutrophils # (Auto) 6.1 1.8-7.7 K/uL Lymphocytes # (Auto) 3.2 1.0-4.8 K/uL Monocytes # (Auto) 0.5 0.1-1.0 K/uL Eosinophils # (Auto) 0.24 0.00-0.70 K/uL Basophils # (Auto) 0.04 0.00-0.20 K/uL Absolute Immature Granulocyte (auto 0.17 0-1 K/uL Nucleated Red Blood Cells 0.0 0.0-0.19 % Chemistry Labs: Test 03/21/25 16:26 03/21/25 03:50 03/20/25 12:11 Range/Units Whole Blood Glucose 349 H 70-110 MG/DL Sodium Level 139 136-145 mmol/L Potassium Level 4.5 3.5-5.1 mmol/L Chloride Level 106 101-111 mmol/L Carbon Dioxide Level 23 21-32 mmol/L Blood Urea Nitrogen 15 7-18 mg/dL Creatinine 0.9 0.5-1.0 mg/dL Glomerular Filtration Rate Calc 68 >90 mL/min Random Glucose 214 #H 70-105 mg/dL Hemoglobin A1c 8.3 H 4.0-6.0 % Estimated Average Glucose (eAG) 192 H 70-126 mg/dL Total Calcium 8.5 8.5-10.1 mg/dL Total Creatine Kinase 88 # 21-232 U/L Troponin I High Sensitivity 6.5 4-50 ng/L B-Type Natriuretic Peptide < 5 0-100 pg/mL Triglycerides Level 71 30-200 mg/dL Cholesterol Level 171 <200 mg/dL LDL Cholesterol 96 0-99 mg/dL HDL Cholesterol 73 35-85 mg/dL Procalcitonin < 0.05 L 0.05-0.5 ng/mL Thyroid Stimulating Hormone (TSH) 0.49 0.36-3.74 uIU/mL Lactic Acid Level 1.7 0.8-2.5 mmol/L DIAGNOSTICS / RADIOLOGY RESULTS: na PLAN Continue Prednisone 20 mg p.o. daily Continue Community-acquired pneumonia empiric antibiotics Given exposure of smoking for many years, patient has a developed COPD with exacerbation. Patient to follow up as outpatient at pulmonary clinic in two weeks for PFTs, we will continue with nebulizer treatments with DuoNeb Pulmicort, steroids. Follow respiratory cultures Maintain O2 sats above 88% Gi PPX with protonix due to steroids smoking cessation Influenza a and B negative, COVID-19 negative, NEURO: Minimize central acting medications as possible. Maintain fall precautions, adequate lighting during the day PULMONARY: Supplemental 02 as needed. Maintain aspiration precautions at all times CARDIOVASCULAR: Follow hemodynamics. Vital signs per facility protocol GI & NUTRITION: Continue with nutritional support. Continue stool softeners and laxatives as needed. KIDNEYS & ELECTROLYTES: Strict monitoring of intake, output and overall fluid balance. Avoid nephrotoxic medications to the extent possible. Medications to be dosed according to renal function. Monitor electrolytes and replace as needed ENDOCRINE: Maintain blood glucose between 100-180 at all times. Hypoglycemia protocol in place INFECTIOUS DISEASE: Trend temperature, WBC and procalcitonin level Follow cultures, deescalate antibiotics as soon as possible. Panculture if new onset fever ONCOLOGY/HEMATOLOGY/COAGULATION: Monitor for s/s of bleeding Monitor hemoglobin, coagulation studies as needed SKIN: Pressure ulcer prevention per facility protocol Specialty mattress ORTHO/REHAB: Continue PT/OT Prophylaxis: Continue GI and DVT prophylaxis Code Status: Full Resuscitation Disposition: TBD Other: Case discussed with supervising physician plan of care agreed upon LOPEZ POR March 21, 2025 16:50
[2025-03-22] VITALS (9 sets, daily range): BP systolic 125–149; BP diastolic 62–85; PULSE 77–121; RESP 16–26; TEMP 97.8–98.1; O2SAT 95–96
[2025-03-22 04:40] LABS: HEMATOCRIT 33.2 % (36-48); MEAN CORPUSCULAR HEMOGLOBIN 28.3 pg (27.0-33.0); MEAN CORPUSCULAR HGB CONC 32.5 g/dL (32.0-36.0); MEAN CORPUSCULAR VOLUME 86.9 fL (79-99); RED BLOOD CELL COUNT(AUTO) 3.82 MIL/uL (4.00-5.50); RED CELL DISTRIBUTION WIDTH 15.1 % (11.0-15.5); WHITE BLOOD COUNT (AUTO) 12.5 K/uL (4.8-10.8)
[2025-03-22 04:52] LABS: CREATININE 0.9 mg/dL (0.5-1.0); POTASSIUM 3.6 mmol/L (3.5-5.1)
[2025-03-22] MEDS: PoTASSium chloRIDE 20MEQ ER 20 MEQ ERTAB PO PRN (11:45)
[2025-03-22] MEDS ORDERED: PoTASSium chloRIDE 20MEQ/100ML 100 ML IV PRN (12:00)
[2025-03-22] MEDS ORDERED: PoTASSium chl 10% ELIXIR 20MEQ 20 MEQ/15 ML UDCUP PO PRN (12:00)
--- NOTE | 2025-03-22 14:13 | NUR ---
pt did not desaturate during ambulation on room air, but she did have to stop several times to catch breath, was very winded. She became tachypneic and tachy. Addendum: 03/22/25 at 1418 by MELLISA MATOS RT Amended: Links added.
--- NOTE | 2025-03-22 14:59 | DS ---
[facility] DISCHARGE SUMMARY Date Patient Seen: March 22, 2025 Time of Visit: 1246 Supervising Physician: Dr. Soares Primary Care Physician: Kell Smith MD Outpatient Specialists: [ ] Inpatient Consults: [ ] PROBLEM LIST: Acute Bronchitis, POA, resolved Suspected CAP POA, completed treatment COPD exacerbation POA, resolved Acute complicated cystitis, completed treatment Intractable cough, improved CAD with prior stent placement. Left singular kidney Obesity BMI 35 Essential Hypertension DM T2 HOSPITAL COURSE: HPI (per admitting provider)This is a 69-year-old obese female with a cough x2 weeks who was sent from cardiology clinic for suspected community-acquired pneumonia. Patient has a history of hypertension, hyperlipidemia, current smoker, CAD, and COPD. Patient reports cough x2 weeks and progressively worsened. Laboratory in ED unremarkable. Chest x-ray unremarkable. We will order CT chest to rule out pneumonia. Serology exams including influenza type a and B COVID-19 and Group A strep throat negative. Patient was seen and examined by bedside with no family present. Patient is awake alert able to answer simple questions appropriately. Patient denies any chest pain and shortness of breadth. Patient reports cough has improved significantly. Patient denies any nausea vomiting or abdominal pain. He is tolerating p.o. diet is having bowel movements. Has remained hemodynamically stable. No temperatures have been reported. Patient's WBCs noted to be 12.5 today this could be secondary to patient taking prednisone. Patient passed 6 minute walk. Instructed patient will be getting discharged today and will need to follow up with PCP within 3-5 days upon discharge. Patient voices understanding agrees with plan has no questions at this time The patient was treated for the following problems: ACTIVE PROBLEM LIST FOR THE HOSPITALIZATION: CHRONIC PROBLEMS: continue previous management per PCP unless otherwise indicated PORTABLE PINCH RIVETER FINDINGS/RECOMMENDATIONS: [ ] PROCEDURES: as mentioned above DISCHARGE MEDICATIONS: Pt hemodynamically stable and afebrile at time of discharge. PCP notified of patients admission, hospital course and discharge. Continued Medications: Amoxicillin/Potassium Clav (Amox Tr-K Clv 875-125 mg Tab) 875 Mg-125 Mg Tablet 1 TAB PO BID for 14 Days, #28 TAB 0 Refills Aspirin (Aspirin) 81 Mg Tab.chew 81 MG PO daily prn, TAB.CHEW Buspirone HCl (Buspirone HCl) 10 Mg Tablet 1 TAB PO BID for 30 Days, #60 TAB 0 Refills Clonidine HCl (Clonidine HCl) 0.1 Mg Tablet 1 TAB PO HS PRN for IF SBP GREATER THAN 160 for 30 Days, #30 TAB 0 Refills Furosemide (Furosemide) 20 Mg Tablet 20 MG PO DAILY, TAB Glipizide (Glipizide ER) 2.5 Mg Tab.er.24 2.5 MG PO DAILY Meclizine HCl (Medi-Meclizine) 25 Mg Tablet 1 TAB PO BID PRN for DIZZINESS for 10 Days, #30 TAB 0 Refills Prednisone (Prednisone) 20 Mg Tablet 20 MG PO DAILY, TAB Rosuvastatin Calcium (Rosuvastatin Calcium) 40 Mg Tablet 40 MG PO DAILY, TAB Sertraline HCl (Sertraline HCl) 25 Mg Tablet 1 TAB PO HS for 30 Days, #30 TAB 0 Refills Tizanidine HCl (Tizanidine HCl) 2 Mg Capsule 1 CAP PO BID PRN for PAIN LEVEL 1 TO 3 for 30 Days, #60 CAP 0 Refills Discontinued Medications: Acetaminophen (Tylenol) 500 Mg Tab 500 MG PO Q4PRN, #30 TAB Benzonatate (Benzonatate) 200 Mg Capsule 200 MG PO TID PRN for COUGH for 14 Days, #42 CAP Fluticasone Propionate (Flonase Nasal [place]) 50 Mcg/[place] 50 MCG NASAL DAILY PRN for NASAL CONGESTION for 10 Days, #1 SPRAY Methylprednisolone (Medrol) 4 Mg Tab.ds.pk 4 MG PO AD for 6 Days, #1 PACK PHYSICAL EXAM: GENERAL: alert, weak, awake oriented x 3 HEENT: EOMI, Sclera non icteric, moist mucosa NECK: Supple, no JVD, trachea midline LUNGS: Diminished lung sounds upper lobes bilaterally HEART: Regular rate and rhythm. Normal S1 and S2, without murmurs ABD: Abdomen soft, nontender. Bowel sounds present EXT: No clubbing cyanosis or edema NEURO: Alert and oriented to person, follows commands FOLLOW-UP: Follow-up with PCP in 2-3 days RECOMMENDATIONS: See Discharge Instructions This case was seen and discussed with my supervising physician. 35 minutes spent on discharge process, including evaluation of the patient, discussion with nursing staff, medication reconciliation and follow-up appointments LOPEZ PRO March 22, 2025 14:59
--- NOTE | 2025-03-22 16:41 | NUR ---
Discharged Pt was educated on discharge instructions & how to manage s/s of disease. Pt verbalized understanding & denied needing any further assistance. Iv was removed & pt was transported to the main entrance via W/C by [facility] OPERATOR. no s/s of distress.
== END 2025-03-22 16:41 | disposition home or self-care (01) ==
LOC: EDH 11:33 → UNDOADMOB 11:34 → 4BH 11:34 → EDHIP 11:34 → INTOOBSV 15:15 → EDHIP 15:15 → UNDOADMOB 15:15 → 4BH 22:20 → EDHIP 22:20
PROVIDERS: ADMIT Internal Medicine; ATTEND Internal Medicine
DX: J20.9 Acute bronchitis, unspecified (principal); Z20.822 Contact with and (suspected) exposure to COVID-19; J44.1 Chronic obstructive pulmonary disease with (acute) exacerbation; N30.00 Acute cystitis without hematuria; I25.10 Atherosclerotic heart disease of native coronary artery without angina pectoris; E66.9 Obesity, unspecified; I10 Essential (primary) hypertension; E11.9 Type 2 diabetes mellitus without complications; E78.5 Hyperlipidemia, unspecified; F17.210 Nicotine dependence, cigarettes, uncomplicated; Z68.35 Body mass index [BMI] 35.0-35.9, adult; Z79.899 Other long term (current) drug therapy; Z95.5 Presence of coronary angioplasty implant and graft; Z88.0 Allergy status to penicillin
CPT/HCPCS: 87071; 96365; 99285; 82550 ×4; 84484 ×4; 80048 ×3; 82803; 83880 ×2; 85025; 87040 ×2; 87086; 87880; 87205; 87804 ×2; 83605; 81001; 36415 ×3; 87635; 71045; 71250; 93005; 36600; 94640; 96372 ×2; 96375; 83036; 84443; 80061; 82948 ×6; 84145; 96376; 85027; 82306; 94760; G0378 ×48; J1956; J1815 ×4; J2470 ×2; J1650 ×2; 94664